=== PATIENT | female | born 1935 | race Caucasian/White ===

== ENCOUNTER 2017-08-30 16:42 | Emergency (ER) | payer MEDICARE ==
[~2017-08-30] VITALS: Ht 162.6 cm; Wt 77.6 kg
[~2017-08-30 16:42] MED LIST: AMERGE2.5 MG PO; FIORINAL WITH1 EACH PO; LYRICA100 MG PO; MOBIC15 MG PO; PREMARIN0.625 MG PO; SYNTHROID25 MCG PO; VITAMIN D32000 UNI1 PO
[2017-08-30] MEDS ORDERED: ONDANSETRON HCL 4 MG ORAL DISINTEGRATING TAB PO ONE (17:00)
[2017-08-30] MEDS ORDERED: MORPHINE SULFATE 5 MG/ML VIAL INJ ONE ×2 (17:00→17:45)
[2017-08-30] MEDS ORDERED: MORPHINE SULFATE 2 MG/ML SYR IV ONE (17:45)
[2017-08-30 19:38] VITALS: BP 130/78
== END 2017-08-30 18:40 | disposition home or self-care (01) ==
LOC: FSED 16:42
DX: G43.009 Migraine without aura, not intractable, without status migrainosus (principal); J01.00 Acute maxillary sinusitis, unspecified; R50.9 Fever, unspecified
CPT/HCPCS: 80048; 85025; 99283; J2270

== ENCOUNTER 2018-08-08 17:51 | Observation (INO) | payer MEDICARE ==
[~2018-08-08] VITALS: Ht 162.6 cm; Wt 83.5 kg
--- OUTSIDE RECORDS SUMMARY | 2018-08-08 17:55 | XMS REPORT | Summary of Care ---
Author Author [facility] Address Unknown Phone Unavailable Encounter HQ Song(FIN) [id number] Date(s): 06/01/16 - 06/30/16 [facility] Discharge Disposition: Home or Self Care Attending Physician: Raudel Adams MD Vital Signs No data available for this section Problem List Condition Effective Dates Status Health Status Informant Arthritis(Confirmed) Active Bacterial Resolved meningitis(Confirmed ) Fibromyalgia(Confirm Resolved ed) Fibromyalgia(Confirm Active ed) History of migraine Active headaches(Confirmed) Knee pain(Confirmed) Active Tumor of eighth Resolved cranial nerve(Confirmed) Allergies, Adverse Reactions, Alerts Substance Reaction Severity Status contrast media MIGRAINES Active (iodine-based) NKDA Active Medications No data available for this section Results No data available for this section Immunizations Given and Recorded Vaccine Date Status Refusal Reason influenza virus vaccine, inactivated 02/11/16 Given pneumococcal 23-valent vaccine 10/30/14 Given Procedures Procedure Date Related Diagnosis Body Site Appendectomy Arthroscopy of knee with meniscus repair BSO - Total abdominal hysterectomy and bilateral salpingo-oophorectomy Cataract surgery Removal of intracranial extradural tumor Social History Social History Type Response Alcohol Never Smoking Status Never smoker; Exposure to Tobacco Smoke Her Father Smoked cigars or pipe; Cigarette Smoking Last 365 Days No; Reg Smoking Cessation Counseling No Assessment and Plan No data available for this section
--- OUTSIDE RECORDS SUMMARY | 2018-08-08 17:55 | XMS REPORT | Summary of Care ---
Author Organization Unknown Address Unknown Phone Unavailable Encounter HQ Encntr_alistephanie([facility]) [id number] Date(s): 11/03/13 - 11/03/13 [facility] [address] Discharge Disposition: Home Physician Attending: Lou Cole MD Reason for Visit 719.46/723.1/719.45 Problem List No data available for this section Allergies, Adverse Reactions, Alerts No data available for this section Medications No data available for this section Medications Administered During Your Visit No data available for this section Immunizations No data available for this section
--- OUTSIDE RECORDS SUMMARY | 2018-08-08 17:55 | XMS REPORT ---
Author Author [facility] Address Unknown Phone Unavailable Care Team Providers Care Mat Maker Name Role Phone Unavailable Unavailable Payers Payer Name Policy Type Policy Number Effective Date Expiration Date Problems This patient has no known problems. Allergies, Adverse Reactions, Alerts Allergy Name Allergy Type Status Severity Reaction(s) Onset Date Inactive Date Treating Clinician Comments No Known Allergies DA Active U 2017-10-31 00:00:00 Medications This patient has no known medications.
--- OUTSIDE RECORDS SUMMARY | 2018-08-08 17:55 | XMS REPORT | Summary of Care ---
Author Organization Unknown Address Unknown Phone Unavailable Encounter HQ Song([facility]) [id number] Date(s): 10/29/14 - 10/31/14 [facility] [address] [place] [address]- [phone] Discharge Disposition: Home Physician Attending: Abdi Ferguson MD Physician Admitting: Abdi Ferguson MD Vital Signs 1 2 3 Most recent to oldest [Reference Range]: 162.56 cm (10/29/14 10:53 PM) 162.56 cm (10/29/14 10:53 PM) Height 98.2 DegF (10/31/14 8:15 AM) 98.1 DegF (10/31/14 4:00 AM) 98.4 DegF (10/31/14 12:00 AM) Temperature Oral [96.4-99.1 DegF] 164/66 mmHg *HI* (10/31/14 8:15 AM) 120/63 mmHg (10/31/14 4:00 AM) 142/71 mmHg *HI* (10/31/14 12:00 AM) Blood Pressure [90-140/60-90 mmHg] 18 BRMIN (10/31/14 8:15 AM) 18 BRMIN (10/31/14 4:00 AM) 18 BRMIN (10/31/14 12:00 AM) Respiratory Rate [14-20 BRMIN] 59 bpm *LOW* (10/31/14 8:15 AM) 74 bpm (10/31/14 4:00 AM) 79 bpm (10/31/14 12:00 AM) Peripheral Pulse Rate [60-100 bpm] 74.227 kg (10/29/14 10:53 PM) 74.227 kg (10/29/14 10:53 PM) Weight 28.09 m2 (10/29/14 10:53 PM) 28.09 m2 (10/29/14 10:53 PM) Body Mass Index Problem List Condition Effective Dates Status Health Status Informant Bacterial Resolved meningitis(Confirmed ) Fibromyalgia(Confirm Resolved ed) History of migraine Active headaches(Confirmed) Tumor of eighth Resolved cranial nerve(Confirmed) Allergies, Adverse Reactions, Alerts Substance Reaction Severity Status NKDA Active Medications Ambien 5 mg, 1 tab, Route: PO, Drug form: TAB, Bedtime, Dosing Weight 74.227, kg, PRN a s needed for sleep, Start date: 10/30/14 13:15:00, Duration: 30 day, Stop date: 11/29/14 13:14:00 Notes: (Same As: Ambien) Start Date: 10/30/14 Stop Date: 10/31/14 Status: Discontinued Ambien 10 mg oral tablet 10 mg=1 tab, PO, Bedtime, PRN for sleep, 0 Refill(s) Start Date: 10/30/14 Stop Date: 11/13/14 Status: Ordered Amerge 2.5 mg, Route: PO, Drug form: TAB, Daily, Dosing Weight 74.227, kg, PRN Headache 6-10, Start date: 10/30/14 13:14:00, Duration: 30 day, Stop date: 11/29/14 13:1 3:00 Start Date: 10/30/14 Stop Date: 10/31/14 Status: Discontinued Amerge 2.5 mg oral tablet 2.5 mg=1 tab, PO, Daily, PRN for migraine headache, # 18 tab, 0 Refill(s) Start Date: 10/30/14 Stop Date: 11/17/14 Status: Ordered APAP/butalbital/caffeine 2 tab, Route: PO, Drug Form: TAB, Q4H, PRN Headache 4-6, Start date: 10/30/14 13 :43:00, Duration: 30 day, Stop date: 11/29/14 13:42:00 Notes: (lvbspjxzlrhqb-pufyswnouh-zsbelcuh 325-50-40mg) Do not exceed 4 gm/day o f acetaminophen. (Same as: Esgic, Fioricet) Start Date: 10/30/14 Stop Date: 10/31/14 Status: Discontinued CeleBREX 200 mg, 2 cap, Route: PO, Drug form: CAP, Daily, Dosing Weight 74.227, kg, Start date: 10/31/14 9:00:00, Duration: 30 day, Stop date: 11/29/14 9:00:00 Notes: NSAID. Please check indication. Not for seizure. (Same As: CeleBREX) Start Date: 10/31/14 Stop Date: 10/31/14 Status: Discontinued CeleBREX 200 mg oral capsule 200 mg=1 cap, PO, Daily, # 30 cap, 0 Refill(s) Start Date: 10/30/14 Status: Ordered Dilaudid 0.2 mg, 0.2 mL, Route: IV, Drug form: INJ, Q3H, kg, PRN Pain Score 7-10, hold fo r sedation, Start date: 10/29/14 21:22:00, Duration: 30 day, Stop date: 11/28/14 21:21:00 Notes: Same as: Dilaudid Start Date: 10/29/14 Stop Date: 10/31/14 Status: Discontinued enoxaparin 40 mg, 0.4 mL, Route: SUB-Q, Drug form: INJ, [id number], Dosing Weight 74.227, kg, Start date: 10/30/14 14:00:00, Duration: 30 day, Stop date: 11/28/14 14:00:00 Notes: (Same as: Lovenox) Start Date: 10/30/14 Stop Date: 10/31/14 Status: Discontinued Fiorinal with Codeine 2 cap, PO, Q4H, PRN Pain Score 7-10, 0 Refill(s) Start Date: 10/30/14 Status: Ordered Fiorinal with Codeine 2 cap, Route: PO, Dosing Weight 74.227, kg, Q4H, PRN Headache 4-6, Start date: 0 10/30/14 13:13:00, Duration: 30 day, Stop date: 11/29/14 13:12:00 Start Date: 10/30/14 Stop Date: 10/30/14 Status: Discontinued Lyrica 150 mg, 2 cap, Route: PO, Drug form: CAP, Daily, Dosing Weight 74.227, kg, Start date: 10/31/14 9:00:00, Duration: 30 day, Stop date: 11/29/14 9:00:00 Notes: (Same as: Lyrica) Start Date: 10/31/14 Stop Date: 10/31/14 Status: Discontinued Lyrica 150 mg oral capsule 150 mg=1 cap, PO, Daily, 0 Refill(s) Start Date: 10/30/14 Stop Date: 10/31/14 Status: Discontinued morphine Sulfate 2 mg, Route: IVP, Q15Min, kg, PRN Chest Pain, Start date: 10/29/14 20:23:00, Dur ation: 2 doses or times, Stop date: Limited # of times Start Date: 10/29/14 Stop Date: 10/29/14 Status: Discontinued nitroglycerin SL Tab 0.4 mg, 1 tab, Route: SL, Drug form: TAB, Q5Min, kg, PRN Chest Pain, Start date: 10/29/14 20:23:00, Duration: 3 doses or times, Stop date: Limited # of times Notes: (Same as:Nitroquick, Nitrostat)"Do Not Crush" Sublingual tablet Start Date: 10/29/14 Stop Date: 10/31/14 Status: Discontinued Norvasc 5 mg, 1 tab, Route: PO, Drug form: TAB, Daily, Dosing Weight 74.227, kg, Start d ate: 11/01/14 9:00:00, Duration: 30 day, Stop date: 11/30/14 9:00:00 Notes: (Same as: Norvasc) Start Date: 11/01/14 Stop Date: 10/31/14 Status: Canceled pneumococcal 23-valent vaccine 0.5 mL, Route: IM, Drug Form: INJ, Daily, Start date: 10/30/14 9:00:00, Duration : 1 doses or times, Stop date: 10/30/14 9:00:00 Notes: (Same as: Pneumovax 23) Refrigerate Start Date: 10/30/14 Stop Date: 10/30/14 Status: Completed Premarin 0.625 mg, 1 tab, Route: PO, Drug form: TAB, Daily, Dosing Weight 74.227, kg, Sta rt date: 10/30/14 16:00:00, Duration: 30 day, Stop date: 11/29/14 9:00:00 Notes: (Same As: Premarin) Start Date: 10/30/14 Stop Date: 10/31/14 Status: Discontinued Premarin 0.625 mg oral tablet 0.625 mg=1 tab, PO, Daily, # 30 tab, 0 Refill(s) Start Date: 10/30/14 Status: Ordered Saline Flush 0.9% 10 ml, Route: IVP, Drug Form: INJ, kg, Q12H, Start date: 10/29/14 21:00:00, Dura tion: 30 day, Stop date: 11/28/14 9:00:00 Notes: (Same as: BD Posiflush) Start Date: 10/29/14 Stop Date: 10/31/14 Status: Discontinued Saline Flush 0.9% 10 ml, Route: IVP, Drug Form: INJ, kg, PRN, PRN Line Flush, Start date: 10/29/14 20:23:00, Duration: 30 day, Stop date: 11/28/14 20:22:00 Notes: (Same as: BD Posiflush) Start Date: 10/29/14 Stop Date: 10/31/14 Status: Discontinued Synthroid 25 microgram, 1 tab, Route: PO, Drug form: TAB, Q630AM, Dosing Weight 74.227, kg , Start date: 10/31/14 6:30:00, Duration: 30 day, Stop date: 11/29/14 6:30:00 Notes: Take 1 hour before or 2 hours after meal; Enteral feeds may interefere wi th the absorption of this medication. (Same as:Levothroid) Start Date: 10/31/14 Stop Date: 10/31/14 Status: Discontinued Synthroid 25 mcg (0.025 mg) oral tablet 25 microgram=1 tab, PO, Daily, # 30 tab, 0 Refill(s) Start Date: 10/30/14 Status: Ordered Tylenol 650 mg, 2 tab, Route: PO, Drug form: TAB, Q6H, Dosing Weight 74.227, kg, PRN Khalif n Score 6-10, Start date: 10/30/14 9:45:00, Duration: 30 day, Stop date: 5 9:44:00 Notes: Do not exceed 4 gm/day. (Same as: Tylenol) Start Date: 10/30/14 Stop Date: 10/31/14 Status: Discontinued Vitamin D 2,000 mg, Route: PO, Daily, Dosing Weight 74.227, kg, Start date: 10/31/14 9:00: 00, Duration: 30 day, Stop date: 11/29/14 9:00:00 Start Date: 10/31/14 Stop Date: 10/30/14 Status: Deleted Vitamin D 2,000 mg, PO, Daily, 0 Refill(s) Start Date: 10/30/14 Status: Ordered Vitamin D3 2,000 IntlUnit, 2 tab, Route: PO, Drug form: TAB, Daily, Start date: 10/30/14 14 :00:00, Duration: 30 day, Stop date: 11/29/14 9:00:00 Start Date: 10/30/14 Stop Date: 10/31/14 Status: Discontinued Xyzal 5 mg oral tablet 5 mg=1 tab, PO, QPM, PRN Allergies, # 30 tab, 0 Refill(s) Start Date: 10/30/14 Status: Ordered Zofran 4 mg, Route: IV, Drug form: INJ, Q8H, Dosing Weight 74.227, kg, PRN Nausea, Star t date: 10/30/14 13:32:00, Duration: 30 day, Stop date: 11/29/14 13:31:00 Start Date: 10/30/14 Stop Date: 10/30/14 Status: Deleted Zofran 4 mg, 2 mL, Route: IV, Drug form: INJ, Q8H, Dosing Weight 74.227, kg, PRN Nausea , Start date: 10/30/14 13:31:00, Duration: 30 day, Stop date: 11/29/14 13:30:00 Notes: (Same as: Zofran) MEDICATION WASTE Product Size: 4 mgProduct Was kandis: ___ mg Start Date: 10/30/14 Stop Date: 10/31/14 Status: Discontinued Results ELECTROLYTES Most recent to 1 2 oldest [Reference Range]: Sodium Lvl [135-145 138 mEq/L mEq/L] (10/30/14 2:31 AM) Potassium Lvl 4.0 mEq/L [3.5-5.1 mEq/L] (10/30/14 2:31 AM) Chloride Lvl [95-109 105 mEq/L mEq/L] (10/30/14 2:31 AM) CO2 [24-32 mEq/L] 27 mEq/L (10/30/14 2:31 AM) AGAP [10.0-20.0 10.0 mEq/L mEq/L] (10/30/14 2:31 AM) CHEM PANEL Most recent to 1 2 oldest [Reference Range]: Creatinine Lvl 1.1 mg/dL 1.1 mg/dL [0.5-1.4 mg/dL] (10/30/14 2:54 PM) (10/30/14 2:31 AM) eGFR 48 mL/min/1.73m2 1 48 mL/min/1.73m2 2 *NA* *NA* (10/30/14 2:54 PM) (10/30/14 2:31 AM) BUN [7-22 mg/dL] 15 mg/dL (10/30/14 2:31 AM) Glucose Lvl [70-99 121 mg/dL 3 mg/dL] *HI* (10/30/14 2:31 AM) Calcium Lvl 8.6 mg/dL [8.5-10.5 mg/dL] (10/30/14 2:31 AM) 1Result Comment: The eGFR is calculated using the CKD-EPI formula. In most young, healthy individuals the eGFR will be >90 mL/min/1.73m2. The eGFR declines with age. An eGFR of 60-89 may be normal in some populations, particularly the elderly, for whom the CKD-EPI formula has not been extensively validated. Use of the eGFR is not recommended in the following populations: Individuals with unstable creatinine concentrations, including patients and those with serious co-morbid conditions. Patients with extremes in muscle mass or diet. The data above are obtained from the National Kidney Disease Education Program ( NKDEP) which additionally recommends that when the eGFR is used in patients with extremes of body mass index for purposes of drug dosing, the eGFR should be mul tiplied by the estimated BMI. 2Result Comment: The eGFR is calculated using the CKD-EPI formula. In most young, healthy individuals the eGFR will be >90 mL/min/1.73m2. The eGFR declines with age. An eGFR of 60-89 may be normal in some populations, particularly the elderly, for whom the CKD-EPI formula has not been extensively validated. Use of the eGFR is not recommended in the following populations: Individuals with unstable creatinine concentrations, including patients and those with serious co-morbid conditions. Patients with extremes in muscle mass or diet. The data above are obtained from the National Kidney Disease Education Program ( NKDEP) which additionally recommends that when the eGFR is used in patients with extremes of body mass index for purposes of drug dosing, the eGFR should be mul tiplied by the estimated BMI. 3Interpretive Data: Adult reference range values reflect the clinical guidelines of the [place] [employer]. CARDIAC ENZYMES Most recent to 1 oldest [Reference Range]: Total CK [12-191 63 unit/L 61 unit/L unit/L] (10/30/14 2:31 AM) (10/29/14 8:30 PM) Troponin-I <0.02 ng/mL <0.02 ng/mL [0.00-0.40 ng/mL] (10/30/14 2:31 AM) (10/29/14 8:30 PM) LIPIDS Most recent to 05 22 oldest [Reference Range]: CHD Risk [3.90-5.80] 3.04 *LOW* (10/29/14 8:30 PM) Chol [<=199 mg/dL] 243 mg/dL *HI* (10/29/14 8:30 PM) Trig [<=149 mg/dL] 82 mg/dL (10/29/14 8:30 PM) HDL [>=61 mg/dL] 80 mg/dL (10/29/14 8:30 PM) LDL (Calculated) 147 mg/dL [<=99 mg/dL] *HI* (10/29/14 8:30 PM) VLDL 16 *NA* (10/29/14 8:30 PM) HEMATOLOGY Most recent to 1 2 oldest [Reference Range]: WBC [3.7-10.4 K/CMM] 5.5 K/CMM (10/30/14 2:31 AM) RBC [4.20-5.40 3.68 M/CMM M/CMM] *LOW* (10/30/14 2:31 AM) Hgb [12.0-16.0 g/dL] 11.4 g/dL *LOW* (10/30/14 2:31 AM) Hct [36.0-48.0 %] 34.4 % *LOW* (10/30/14 2:31 AM) MCV [80.0-98.0 fL] 93.4 fL (10/30/14 2:31 AM) MCH [27.0-31.0 pg] 31.0 pg (10/30/14 2:31 AM) MCHC [32.0-36.0 33.2 g/dL g/dL] (10/30/14 2:31 AM) RDW [11.5-14.5 %] 12.3 % (10/30/14 2:31 AM) Platelet [133-450 223 K/CMM 197 K/CMM K/CMM] (10/30/14 2:54 PM) (10/30/14 2:31 AM) MPV [7.4-10.4 fL] 8.9 fL (10/30/14 2:31 AM) PTT [22.9-35.8 28.3 seconds 4 seconds] (10/30/14 2:54 PM) 4Interpretive Data: Heparin Therapeutic Range: 57 - 92 Seconds Immunizations Vaccine Date Refusal Reason pneumococcal 23-valent vaccine 10/30/14 Procedures Procedure Date Related Diagnosis Body Site [...] Smoking Cessation Counseling No Assessment and Plan Extracted from: Title: Cardiology Note * Author: Mary Choi MD Date: 10/31/14 Impression and Plan ASSESSMENT: 1. Atypical chest pain. 2. Hyperlipidemia. 3. Hypothyroidism. 4. Fibromyalgia. PLAN: - stress test negative - bt at times high. start norvasc 5mg no other cardiac recs. ok to d/c home from cardiac standpoint. followup Dr Spangler as outpt. cardiology signing off
--- OUTSIDE RECORDS SUMMARY | 2018-08-08 17:55 | XMS REPORT | Continuity of Care Document ---
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 [place] CHEST PAIN Active 10/29/2014 [facility] 719.46/723.1/719.45 Active 11/03/2013 [place] Active Problem 07/03/2016 [facility] [place] Bacterial meningitis Resolved Problem [facility]/03[facility] [place] Fib[facility]algia [facility] Problem [facility]03[facility] [place] History of migraine headaches Active Problem [facility]03[facility] [place] Knee pain Active Problem 07/03/2016 [facility] [place] 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 07/03[facility] [place] ENCOUNTER FOR ADMINISTRATIVE EXAMINATION Active [facility] 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 [facility] Medications Medication Details Route Status Patient Instructions Ordering Provider Order Date Source Aspirin 325 MG Enteric Coated Tablet 325 mg=1 tab, PO, BID, # 60 tab, 0 Refill(s) Active 02/11/2016 [facility] Docusate Sodium 100 MG Oral Capsule 100 mg=1 cap, PO, BID, # 60 cap, 0 Refill(s) Active 02/11/2016 [facility] methocarbamol 500 mg oral tablet 1,000 mg=2 tab, PO, Q8H, PRN Muscle Spasms, # 60 tab, 0 Refill(s) Active 02/11/2016 [facility] influenza virus vaccine, inactivated 0.5 mL, Route: IM, Drug Form: SUSP, Daily, Start date: 02/11/16 6:00:00 CDT, Duration: 1 doses or times, Stop date: 02/11/16 6:00:00 CDTNotes: (Same as: Fluzone Quadrivalent, Fluarix Quadrivalent) For 3 years of age and older (0.5 mL IM) Shake well before use Inactive 02/11/2016 [facility] Acetaminophen 325 MG / Hydrocodone Bitartrate 5 MG Oral Tablet [[place] 5/325] 2 tab, Route: PO, Drug Form: TAB, Dosing Weight 72.727, kg, Q6H, PRN Pain Score 7-10, Start date: 02/10/16 19:11:00 CDT, Duration: 30 day, Stop date: 03/11/16 19:10:00 CDTNotes: (Same as: [place] 325/5) Do not exceed 4gm/day of acetaminophen. No Longer Active 02/11/2016 [facility] Acetaminophen 325 MG / Hydrocodone Bitartrate 5 MG Oral Tablet [[place] 5/325] 1 tab, Route: PO, Drug Form: TAB, Dosing Weight 72.727, kg, Q6H, PRN Pain Score 4-6, Start date: 02/10/16 16:33:00 CDT, Duration: 30 day, Stop date: 03/11/16 16:32:00 CDTNotes: (Same as: [place] 325/5) Do not exceed 4gm/day of acetaminophen. No Longer Active 02/10/2016 [facility] Urecholine 25 mg, 2.5 tab, Route: PO, Drug form: TAB, TID, Dosing Weight 72.727, kg, PRN Other -See Comment, Start date: 02/10/16 13:55:00 CDT, Duration: 30 day, Stop date: 03/11/16 13:54:00 CDTNotes: Take on empty stomach. (Same As: Urecholine) No Longer Active 02/10/2016 [facility] influenza virus vaccine, inactivated 0.5 mL, Route: IM, Drug Form: SUSP, Daily, Start date: 02/10/16 9:00:00 CDT, Duration: 1 doses or times, Stop date: 02/10/16 9:00:00 CDTNotes: (Same as: Fluzone Quadrivalent, Fluarix Quadrivalent) For 3 years of age and older (0.5 mL IM) Shake well before use Inactive 02/10/2016 [facility] Synthroid 25 microgram, 1 tab, Route: PO, Drug form: TAB, Q630AM, Dosing Weight 72.727, kg, Start date: 02/10/16 6:30:00 CDT, Duration: 30 day, Stop date: 03/10/16 6:30:00 CDTNotes: Take 1 hour before or 2 hours after meal; Enteral feeds may interefere with the absorption of this medication. (Same as:Levothroid) No Longer Active 02/10/2016 [facility] acetaminophen 1,000 mg, 2 tab, Route: PO, Drug form: TAB, Q6H, Start date: 02/10/16 6:00:00 CDT, Duration: 30 day, Stop date: 03/11/16 0:00:00 CDTNotes: Max acetaminophen 4000 mg/day (4 gm/day). (Same as: Tylenol Extra Strength) No Longer Active 02/10/2016 [facility] remove patch 1 patch, Route: TOP, Q24H, Drug form: ERFILM, Start date: 02/09/16 23:00:00 CDT, Duration: 30 day, Stop date: 03/09/16 23:00:00 CDT No Longer Active 02/10/2016 [facility] Enoxaparin 30 mg, 0.3 mL, Route: SUB-Q, Drug form: INJ, [id number], Dosing Weight 72.727, kg, Start date: 02/09/16 22:16:00 CDT, Duration: 30 day, Stop date: 03/09/16 22:16:00 CDTNotes: (Same as: Lovenox) No Longer Active 02/10/2016 [facility] sennosides, SHELTER 17.2 mg, 2 tab, Route: PO, Drug Form: TAB, Dosing Weight 72.727, kg, Bedtime, Start date: 02/09/16 21:00:00 CDT, Duration: 30 day, Stop date: 03/09/16 21:00:00 CDTNotes: (Same as: Senokot) No Longer Active 02/10/2016 [facility] Docusate 100 mg, Route: PO, BID, Dosing Weight 72.727, kg, Start date: 02/09/16 17:00:00 CDT, Duration: 30 day, Stop date: 03/10/16 9:00:00 CDT Inactive 02/09/2016 [facility] Acetaminophen 1,000 mg, 100 mL, Route: IVPB, Drug form: INJ, Q6Hnow, Dosing Weight 72.727, kg, Start date: 02/09/16 15:00:00 CDT, Duration: 30 day, Stop date: 03/10/16 9:00:00 CDTNotes: Infuse over 15 minutes Do not exceed 4gm/day of acetaminophen MEDICATION WASTE Product Size: 1000 mg Product Wasted: 0___ mg No Longer Active 02/09/2016 [facility] ceFAZolin (SCIP) 2 gm, 50 mL, Route: IV, Drug form: INJ, ABXQ6H, Dosing Weight 72.727, kg, Start date: 02/09/16 14:00:00 CDT, Duration: 2 doses or times, Stop date: 02/09/16 20:00:00 CDT Inactive 02/09/2016 [facility] Albuterol 0.833 MG/ML / Ipratropium Hooper 0.167 MG/ML Inhalant Solution [DuoNeb] 3 ml, Route: NEB, Drug Form: SOLN, Dosing Weight 72.727, kg, PRN, PRN Respiratory Protocol, Start date: 02/09/16 12:12:00 CDT, Duration: 30 day, Stop date: 03/10/16 12:11:00 CDTNotes: (Same as: Duoneb) No Longer Active 02/09/2016 [facility] Lidocaine Hydrochloride 0.05 MG/MG Transdermal Patch [Lidoderm] 1 patch, Route: TOP, Q24H, Drug form: FILM, Start date: 02/09/16 11:00:00 CDT, Duration: 30 day, Stop date: 03/09/16 11:00:00 CDTNotes: Apply only once for up to 12 hours in a 24-hour period (12 hours on and 12 hours off). (Same as: Lidoderm) "Remove old patch before application of new patch" No Longer Active 02/09/2016 [facility] gabapentin 300 mg, 1 cap, Route: PO, Drug form: CAP, Q8Hnow, Dosing Weight 72.727, kg, Start date: 02/09/16 11:00:00 CDT, Duration: 30 day, Stop date: 03/10/16 3:00:00 CDTNotes: (Same as: Neurontin) No Longer Active 02/09/2016 [facility] Tramadol 50 mg, Route: PO, Drug form: TAB, Q6Hnow, Dosing Weight 72.727, kg, Start date: 02/09/16 11:00:00 CDT, Duration: 30 day, Stop date: 03/10/16 5:00:00 CDT Inactive 02/09/2016 [facility] celecoxib 200 mg, 1 cap, Route: PO, Drug form: CAP, [id number], Dosing Weight 72.727, kg, Start date: 02/09/16 11:00:00 CDT, Duration: 30 day, Stop date: 03/09/16 23:00:00 CDTNotes: NSAID. Please check indication. Not for seizure. (Same As: CeleBREX) No Longer Active 02/09/2016 [facility] pregabalin 100 mg, Route: PO, Q8Hnow, Dosing Weight 72.727, kg, Start date: 02/09/16 11:00:00 CDT, Duration: 30 day, Stop date: 03/10/16 3:00:00 CDT Inactive 02/09/2016 [facility] Acetaminophen 1,000 mg, Route: IVPB, Q6Hnow, Dosing Weight 72.727, kg, Start date: 02/09/16 11:00:00 CDT, Duration: 30 day, Stop date: 03/10/16 5:00:00 CDT Inactive 02/09/2016 [facility] Nalbuphine 2 mg, 0.2 mL, Route: IVP, Drug form: INJ, Q2H, Dosing Weight 72.727, kg, PRN Itching, Start date: 02/09/16 10:43:00 CDT, Duration: 5 doses or times, Stop date: Limited # of timesNotes: (Same As: [place] in) No Longer Active 02/09/2016 [facility] Oxycodone Hydrochloride 5 MG Oral Tablet 10 mg, 2 tab, Route: PO, Drug form: TAB, Q4H, Dosing Weight 72.727, kg, PRN Pain Score 7-10, Start date: 02/09/16 10:43:00 CDT, Duration: 30 day, Stop date: 03/10/16 10:42:00 CDTNotes: (Same as: Roxicodone) No Longer Active 02/09/2016 [facility] Methocarbamol 1,000 mg, 2 tab, Route: PO, Drug form: TAB, Q8H, Dosing Weight 72.727, kg, PRN Muscle Spasms, Start date: 02/09/16 10:43:00 CDT, Duration: 30 day, Stop date: 03/10/16 10:42:00 CDTNotes: (Same as:Robaxin) Inactive 02/09/2016 [facility] Ondansetron 4 mg, Route: IVP, Q8H, Dosing Weight 72.727, kg, PRN Nausea & Vomiting, Start date: 02/09/16 10:43:00 CDT, Duration: 30 day, Stop date: 03/10/16 10:42:00 CDT Inactive 02/09/2016 [facility] Bisacodyl 10 mg, 1 supp, Route: OH, Drug form: SUPP, Daily, Dosing Weight 72.727, kg, PRN Constipation, Start date: 02/09/16 10:43:00 CDT, Duration: 30 day, Stop date: 03/10/16 10:42:00 CDTNotes: (Same As: Dulcolax, Bisco-Lax) No Longer Active 02/09/2016 [facility] Hydromorphone 0.3 mg, Route: IVP, Q4H, Dosing Weight 72.727, kg, PRN Pain Score 7-10, Start date: 02/09/16 10:43:00 CDT, Duration: 30 day, Stop date: 03/10/16 10:42:00 CDT Inactive 02/09/2016 [facility] Naloxone 0.1 mg, 0.25 mL, Route: IVP, Drug form: INJ, Q2MIN, Dosing Weight 72.727, kg, PRN Narcotic Reversal, Start date: 02/09/16 10:43:00 CDT, Duration: 8 doses or times, Stop date: Limited # of timesNotes: Same as Narcan No Longer Active 02/09/2016 [facility] Ondansetron 4 mg, 2 mL, Route: IVP, Drug form: INJ, ONCE, Dosing Weight 72.727, kg, PRN Nausea & Vomiting, Start date: 02/09/16 10:42:00 CDTNotes: (Same as: Albertina) MEDICATION WASTE Product Size: 4 mg Product Wasted: 0___ mg Inactive 02/09/2016 [facility] Promethazine 6.25 mg, 25 mL, Route: IVPB, Drug form: SOLN, ONCE, Dosing Weight 72.727, kg, PRN Nausea & Vomiting, Start date: 02/09/16 10:42:00 CDT Inactive 02/09/2016 [facility] Naloxone 0.4 mg, 1 mL, Route: IVP, Drug form: INJ, Q2MIN, Dosing Weight 72.727, kg, PRN Narcotic Reversal, Start date: 02/09/16 10:42:00 CDT, Duration: 8 doses or times, Stop date: Limited # of timesNotes: Same as Narcan Inactive 02/09/2016 [facility] Albuterol 0.83 MG/ML Inhalant Solution 2.49 mg, 3 mL, Route: NEB, Drug form: SOLN, Q20Min, Dosing Weight 72.727, kg, PRN Wheezing, Priority: STAT, Start date: 02/09/16 10:42:00 CDT, Duration: 30 day, Stop date: 03/10/16 10:41:00 CDTNotes: SEE RT DOCUMENTATION (Same as: Juvencio) Inactive 02/09/2016 [facility] Diphenhydramine 12.5 mg, 0.25 mL, Route: IVP, Drug form: INJ, Q6H, Dosing Weight 72.727, kg, PRN Itching, Start date: 02/09/16 10:42:00 CDT, Duration: 30 day, Stop date: 03/10/16 10:41:00 CDTNotes: (Same as: Brittany mortensen) Inactive 02/09/2016 [facility] Flumazenil 0.2 mg, 2 mL, Route: IVP, Drug form: INJ, PRN, Dosing Weight 72.727, kg, PRN Benzodiazepine Reversal, Initial dose, Start date: 02/09/16 10:42:00 CDT, Duration: 30 day, Stop date: 03/10/16 10:41:00 C DTNotes: (Same as: Romazicon) Inactive 02/09/2016 [facility] Fentanyl 25 microgram, 0.5 mL, Route: IVP, Drug form: INJ, Q5Min, Dosing Weight 72.727, kg, PRN Pain Score 4-6, Start date: 02/09/16 10:42:00 CDT, Duration: 4 doses or times, Stop date: Limited # of timesNotes: (Same as: Sublimaze) Preservative free. Inactive 02/09/2016 [facility] Hydromorphone 0.5 mg, 0.5 mL, Route: IVP, Drug form: INJ, Q5Min, Dosing Weight 72.727, kg, PRN Pain Score 7-10, Start date: 02/09/16 10:42:00 CDT, Duration: 4 doses or times, Stop date: Limited # of timesNotes: Sa me as: Dilaudid Inactive 02/09/2016 [facility] Hydralazine 10 mg, 0.5 mL, Route: IVP, Drug form: INJ, Q20Min, Dosing Weight 72.727, kg, PRN Elevated BP, Start date: 02/09/16 10:42:00 CDT, Duration: 2 doses or times, Stop date: Limited # of timesNotes: (Same as: Apresoline) Push over 5 minutes Inactive 02/09/2016 [facility] Labetalol 10 mg, 2 mL, Route: IVP, Drug form: INJ, Q5Min, Dosing Weight 72.727, kg, PRN Elevated BP, Start date: 02/09/16 10:42:00 CDT, Duration: 5 doses or times, Stop date: Limited # of times Inactive 02/09/2016 [facility] Calcium Chloride 0.0014 MEQ/ML / Potassium Chloride 0.004 MEQ/ML / Sodium Chloride 0.103 MEQ/ML / Sodium Lactate 0.028 MEQ/ML Injectable Solution 1,000 mL, Rate: 125 ml/hr, Infuse over: 8 hr, Route: IV, Dosing Weight 72.727 kg, Total Volume: 1,000, Start date: 02/09/16 10:42:00 CDT, Duration: 30 day, Stop date: 03/10/16 10:41:00 CDT Inactive 02/09/2016 [facility] Ondansetron 4 mg, 2 mL, Route: IVP, Drug form: INJ, Q8H, Dosing Weight 72.727, kg, PRN Nausea & Vomiting, Start date: 02/09/16 10:17:00 CDT, Duration: 30 day, Stop date: 03/10/16 10:16:00 CDTNotes: (Same as: Zofran) MEDICATION WASTE Product Size: 4 mg Product Wasted: _0__ mg No Longer Active 02/09/2016 [facility] Methocarbamol 1,000 mg, 2 tab, Route: PO, Drug form: TAB, Q8H, Dosing Weight 72.727, kg, PRN Muscle Spasms, Start date: 02/09/16 10:17:00 CDT, Duration: 30 day, Stop date: 03/10/16 10:16:00 CDTNotes: (Same as:Robaxin) No Longer Active 02/09/2016 [facility] Melatonin 3 mg, 1 tab, Route: PO, Drug form: TAB, Bedtime, Dosing Weight 72.727, kg, PRN Insomnia, Start date: 02/09/16 10:17:00 CDT, Duration: 30 day, Stop date: 03/10/16 10:16:00 CDTNotes: (Same as: Melatonin) No Longer Active 02/09/2016 [facility] Hydromorphone 0.3 mg, 0.3 mL, Route: IVP, Drug form: INJ, Q4H, Dosing Weight 72.727, kg, PRN Pain Score 7-10, Start date: 02/09/16 10:17:00 CDT, Duration: 30 day, Stop date: 03/10/16 10:16:00 CDTNotes: Same as: Dilaudid No Longer Active 02/09/2016 [facility] Al hydroxide/Mg hydroxide/simethicone 200 mg-200 mg-20 mg/5 mL oral suspension 30 mL, Route: PO, Drug Form: SUSP, Dosing Weight 72.727, kg, Q4H, PRN Indigestion, Start date: 02/09/16 10:17:00 CDT, Duration: 30 day, Stop date: 03/10/16 10:16:00 CDTNotes: (aluminum hydroxide-magnesium hyd- simethicone [phone]/5ml 30 ml ud SHAUN) No Longer Active 02/09/2016 [facility] Diphenhydramine 12.5 mg, 5 mL, Route: PO, Drug form: LIQ, Q6H, Dosing Weight 72.727, kg, PRN Itching, Start date: 02/09/16 10:17:00 CDT, Duration: 30 day, Stop date: 03/10/16 10:16:00 CDTNotes: (Same as: Benadryl) No Longer Active 02/09/2016 [facility] Oxycodone Hydrochloride 5 MG Oral Tablet 10 mg, 2 tab, Route: PO, Drug form: TAB, Q4H, Dosing Weight 72.727, kg, PRN Pain Score 7-10, Start date: 02/09/16 10:17:00 CDT, Duration: 30 day, Stop date: 03/10/16 10:16:00 CDTNotes: (Same as: Roxicodone) Inactive 02/09/2016 [facility] sodium chloride 0.45% 1000 ml INJ 1,000 mL 1,000 mL, Rate: 75 ml/hr, Infuse over: 13.3 hr, Route: IV, Dosing Weight 72.727 kg, Total Volume: 1,000, Start date: 02/09/16 10:17:00 CDT, Duration: 30 day, Stop date: 03/10/16 10:16:00 CDT No Longer Active 02/09/2016 [facility] fentaNYL (ANES) Route: IV, Drug form: INJ, ONCE, Stop date: 02/09/16 9:59:00 CDT Inactive 02/09/2016 [facility] ondansetron (ANES) Route: IV, Drug form: INJ, ONCE, Stop date: 02/09/16 9:44:00 CDT Inactive 02/09/2016 [facility] glycopyrrolate (ANES) Route: IV, Drug form: INJ, ONCE, Stop date: 02/09/16 9:34:00 CDT Inactive 02/09/2016 [facility] ePHEDrine (ANES) Route: IV, Drug form: INJ, ONCE, Stop date: 02/09/16 9:34:00 CDT Inactive 02/09/2016 [facility] dexamethasone (ANES) Route: IV, Drug form: INJ, ONCE, Stop date: 02/09/16 9:34:00 CDT Inactive 02/09/2016 [facility] propofol (ANES) Route: IV, Drug form: INJ, ONCE, Stop date: 02/09/16 9:29:00 CDT Inactive 02/09/2016 [facility] ceFAZolin (ANES) Route: IV, Drug form: INJ, ONCE, Stop date: 02/09/16 9:29:00 CDT Inactive 02/09/2016 [facility] fentaNYL (ANES) Route: IV, Drug form: INJ, ONCE, Stop date: 02/09/16 9:14:00 CDT Inactive 02/09/2016 [facility] lidocaine (ANES) Route: IV, Drug form: INJ, ONCE, Stop date: 02/09/16 9:14:00 CDT Inactive 02/09/2016 [facility] acetaminophen (ANES) (ANES) Route: IV, Drug form: INJ, Start date: 02/09/16 9:00:00 CDT, Stop date: 02/09/16 10:00:00 CDT Inactive 02/09/2016 [facility] tranexamic acid (ANES) (ANES) Route: IV, Drug form: INJ, Start date: 02/09/16 8:20:00 CDT, Stop date: 02/09/16 9:20:00 CDT Inactive 02/09/2016 [facility] LR 1000 mL INJ (ANES) Route: IV, Total Volume: 1,000, Start date: 02/09/16 8:12:00 CDT, Stop date: 02/09/16 9:12:00 CDT Inactive 02/09/2016 [facility] Lidocaine Hydrochloride 10 MG/ML Injectable Solution 5 mg, 0.5 mL, Route: INTRADERM, Drug Form: INJ, Dosing Weight 73.182, kg, ONCALL, Start date: 02/09/16 7:00:00 CDT, Duration: 30 day, Stop date: 03/10/16 6:59:00 CDTNotes: (Same as: Xylocaine) Inactive 02/09/2016 [facility] Tylenol PO, 0 Refill(s) Active 02/09/2016 [facility] Lactated Ringers 1,000 mL 1,000 mL, Rate: 40 ml/hr, Infuse over: 25 hr, Route: IV, Dosing Weight 73.182 kg, Total Volume: 1,000, Start date: 02/09/16 6:31:00 CDT, Duration: 30 day, Stop date: 03/10/16 6:30:00 CDT Inactive 02/09/2016 [facility] ceFAZolin 2 gm, 50 mL, Route: IV, Drug form: INJ, PRE OP, Start date: 02/09/16 5:00:00 CDT, Duration: 1 day, Stop date: 02/10/16 4:59:00 CDT Inactive 02/09/2016 [facility] non-formulary PO, Daily, Refill(s) 0 No Longer Active 01/26/2016 [facility] pregabalin 150 MG Oral Capsule [Lyrica] 150 mg=1 cap, PO, Daily, 0 Refill(s) Active 01/26/2016 [facility] temazepam 30 mg oral capsule 30 mg=1 cap, PO, Bedtime, PRN Sleep, # 14 cap, 0 Refill(s) Active 01/26/2016 [facility] Norvasc 5 mg, 1 tab, Route: PO, Drug form: TAB, Daily, Dosing Weight 74.227, kg, Start date: 11/01/14 9:00:00, Duration: 30 day, Stop date: 11/30/14 9:00:00Notes: (Same as: Norvasc) No Longer Active 11/01/2014 [facility] Lyrica 150 mg, 2 cap, Route: PO, Drug form: CAP, Daily, Dosing Weight 74.227, kg, Start date: 10/31/14 9:00:00, Duration: 30 day, Stop date: 11/29/14 9:00:00Notes: (Same as: Lyrica) Inactive 10/31/2014 [facility] Vitamin D 2,000 mg, Route: PO, Daily, Dosing Weight 74.227, kg, Start date: 10/31/14 9:00:00, Duration: 30 day, Stop date: 11/29/14 9:00:00 No Longer Active 10/31/2014 [facility] Celebrex 200 mg, 2 cap, Route: PO, Drug form: CAP, Daily, Dosing Weight 74.227, kg, Start date: 10/31/14 9:00:00, Duration: 30 day, Stop date: 11/29/14 9:00:00Notes: NSAID. Please check indication. Not for seizure. (Same As: CeleBREX ) Inactive 10/31/2014 [facility] Synthroid 25 microgram, 1 tab, Route: PO, Drug form: TAB, Q630AM, Dosing Weight 74.227, kg, Start date: 10/31/14 6:30:00, Duration: 30 day, Stop date: 11/29/14 6:30:00Notes: Take 1 hour before or 2 hours after meal; Enteral feeds may interefere with the absorption of this medication. (Same as:Levothroid) Inactive 10/31/2014 [facility] Premarin 0.625 mg, 1 tab, Route: PO, Drug form: TAB, Daily, Dosing Weight 74.227, kg, Start date: 10/30/14 16:00:00, Duration: 30 day, Stop date: 11/29/14 9:00:00Notes: (Same As: Premarin) No Longer Active 10/30/2014 [facility] Vitamin D3 2,000 IntlUnit, 2 tab, Route: PO, Drug form: TAB, Daily, Start date: 10/30/14 14:00:00, Duration: 30 day, Stop date: 11/29/14 9:00:00 No Longer Active 10/30/2014 [facility] Enoxaparin 40 mg, 0.4 mL, Route: SUB-Q, Drug form: INJ, [id number], Dosing Weight 74.227, kg, Start date: 10/30/14 14:00:00, Duration: 30 day, Stop date: 11/28/14 14:00:00Notes: (Same as: Lovenox) No Longer Active 10/30/2014 [facility] APAP/butalbital/caffeine 2 tab, Route: PO, Drug Form: TAB, Q4H, PRN Headache 4-6, Start date: 10/30/14 13:43:00, Duration: 30 day, Stop date: 11/29/14 13:42:00Notes: (vfwtskkkgezbb-jzgcmzqoji-llpegepd 325-50-40mg) Do not exceed 4 gm/day of acetaminophen. (Same as: Esgic, Fioricet) No Longer Active 10/30/2014 [facility] Zofran 4 mg, Route: IV, Drug form: INJ, Q8H, Dosing Weight 74.227, kg, PRN Nausea, Start date: 10/30/14 13:32:00, Duration: 30 day, Stop date: 11/29/14 13:31:00 Inactive 10/30/2014 [facility] Zofran 4 mg, 2 mL, Route: IV, Drug form: INJ, Q8H, Dosing Weight 74.227, kg, PRN Nausea, Start date: 10/30/14 13:31:00, Duration: 30 day, Stop date: 11/29/14 13:30:00Notes: (Same as: Zofran) MEDICATION WASTE Product Size: 4 mg Product Wasted: ___ mg No Longer Active 10/30/2014 [facility] Ambien 5 mg, 1 tab, Route: PO, Drug form: TAB, Bedtime, Dosing Weight 74.227, kg, PRN as needed for sleep, Start date: 10/30/14 13:15:00, Duration: 30 day, Stop date: 11/29/14 13:14:00Notes: (Same As: Ambien) No Longer Active 10/30/2014 [facility] Amerge 2.5 mg, Route: PO, Drug form: TAB, Daily, Dosing Weight 74.227, kg, PRN Headache 6-10, Start date: 10/30/14 13:14:00, Duration: 30 day, Stop date: 11/29/14 13:13:00 No Longer Active 10/30/2014 [facility] Fiorinal with Codeine 2 cap, Route: PO, Dosing Weight 74.227, kg, Q4H, PRN Headache 4-6, Start date: 10/30/14 13:13:00, Duration: 30 day, Stop date: 11/29/14 13:12:00 Inactive 10/30/2014 [facility] Tylenol 650 mg, 2 tab, Route: PO, Drug form: TAB, Q6H, Dosing Weight 74.227, kg, PRN Pain Score 6-10, Start date: 10/30/14 9:45:00, Duration: 30 day, Stop date: 11/29/14 9:44:00Notes: Do not exceed 4 gm/day. (Same as: Tylenol) No Longer Active 10/30/2014 [facility] pneumococcal capsular polysaccharide type 1 vaccine / pneumococcal capsular polysaccharide type 10A vaccine / pneumococcal capsular polysaccharide type 11A vaccine / pneumococcal capsular polysaccharide type 12F vaccine / pneumococcal capsular polysacchar 0.5 mL, Route: IM, Drug Form: INJ, Daily, Start date: 10/30/14 9:00:00, Duration: 1 doses or times, Stop date: 10/30/14 9:00:00Notes: (Same as: Pneumovax 23) Refrigerate Inactive 10/30/2014 [facility] levocetirizine dihydrochloride 5 MG Oral Tablet [Xyzal] 5 mg=1 tab, PO, QPM, PRN Allergies, # 30 tab, 0 Refill(s) Active 10/30/2014 [facility] pregabalin 150 MG Oral Capsule [Lyrica] 150 mg=1 cap, PO, Daily, 0 Refill(s) No Longer Active 10/30/2014 [facility] Fiorinal with Codeine 2 cap, PO, Q4H, PRN Pain Score 7- 10, 0 Refill(s) Active 10/30/2014 [facility] naratriptan 2.5 MG Oral Tablet [Amerge] 2.5 mg=1 tab, PO, Daily, PRN for migraine headache, # 18 tab, 0 Refill(s) Active 10/30/2014 [facility] celecoxib 200 MG Oral Capsule [Celebrex] 200 mg=1 cap, PO, Daily, # 30 cap, 0 Refill(s) Active 10/30/2014 [facility] Levothyroxine Sodium 0.025 MG Oral Tablet [Synthroid] 25 microgram=1 tab, PO, Daily, # 30 tab, 0 Refill(s) Active 10/30/2014 [facility] Estrogens, Conjugated (SHELTER) 0.625 MG Oral Tablet [Premarin] 0.625 mg=1 tab, PO, Daily, # 30 tab, 0 Refill(s) Active 10/30/2014 [facility] Vitamin D 2,000 mg, PO, Daily, 0 Refill(s) Active 10/30/2014 [facility] Zolpidem tartrate 10 MG Oral Tablet [Ambien] 10 mg=1 tab, PO, Bedtime, PRN for sleep, 0 Refill(s) Active 10/30/2014 [facility] Dilaudid 0.2 mg, 0.2 mL, Route: IV, Drug form: INJ, Q3H, kg, PRN Pain Score 7-10, hold for sedation, Start date: 10/29/14 21:22:00, Duration: 30 day, Stop date: 11/28/14 21:21:00Notes: Same as: Dilaudid No Longer Active 10/30/2014 [facility] Saline Flush 0.9% 10 ml, Route: IVP, Drug Form: INJ, kg, Q12H, Start date: 10/29/14 21:00:00, Duration: 30 day, Stop date: 11/28/14 9:00:00Notes: (Same as: BD Posiflush) No Longer Active 10/30/2014 [facility] Saline Flush 0.9% 10 ml, Route: IVP, Drug Form: INJ, kg, PRN, PRN Line Flush, Start date: 10/29/14 20:23:00, Duration: 30 day, Stop date: 11/28/14 20:22:00Notes: (Same as: BD Posiflush) No Longer Active 10/30/2014 [facility] Morphine 2 mg, Route: IVP, Q15Min, kg, PRN Chest Pain, Start date: 10/29/14 20:23:00, Duration: 2 doses or times, Stop date: Limited # of times Inactive 10/30/2014 [facility] Nitroglycerin 0.4 mg, 1 tab, Route: SL, Drug form: TAB, Q5Min, kg, PRN Chest Pain, Start date: 10/29/14 20:23:00, Duration: 3 doses or times, Stop date: Limited # of timesNotes: (Same as:Nitroquick, Nitrostat) "Do Not Crush" Sublingual tablet No Longer Active 10/30/2014 [facility] Allergies, Adverse Reactions, Alerts Substance Category Reaction Severity Reaction type Status Date Reported Comments Source contrast media (iodine-based) Assertion MIGRAINES Propensity to adverse reactions to drug Active [facility] Immunizations Immunization Date Given Site Status Last Updated Comments Source influenza virus vaccine, inactivated 02/11/2016 Right deltoid completed [employer] [facility] pneumococcal 23-valent vaccine 10/30/2014 Right deltoid completed [place] [facility] [place] Results Order Name Results Value Reference Range Date Interpretation Comments Source HEMATOLOGY Hct 32.0 % 36.0 - 48.0 02/12/2016 [facility] HEMATOLOGY Hgb 10.8 g/dL 12.0 - 16.0 02/12/2016 [facility] CHEM PANEL eGFR 61 mL/min/1.73m2 02/10/2016 Result Comment: The eGFR is calculated using the [...] from the National Kidney Disease Education Program (NKDEP) which additionally recommends that when the eGFR is used in patients with extremes of body mass index for purposes of drug dosing, the eGFR should be multiplied by the estimated BMI. [facility] CHEM PANEL BUN 16 mg/dL 7 - 22 02/10/2016 [facility] CHEM PANEL Glucose Lvl 89 mg/dL 70 - 99 02/10/2016 [facility] CHEM PANEL Sodium Lvl 136 meq/L 135 - 145 02/10/2016 [facility] CHEM PANEL Creatinine Lvl 0.90 mg/dL 0.50 - 1.40 02/10/2016 [facility] CHEM PANEL Calcium Lvl 8.0 mg/dL 8.5 - 10.5 02/10/2016 [facility] CHEM PANEL CO2 27 meq/L 24 - 32 02/10/2016 [facility] CHEM PANEL Chloride Lvl 104 meq/L 95 - 109 02/10/2016 [facility] CHEM PANEL Potassium Lvl 4.6 meq/L 3.5 - 5.1 02/10/2016 [facility] CHEM PANEL AGAP 9.6 meq/L 10.0 - 20.0 02/10/2016 [facility] HEMATOLOGY Hgb 11.1 g/dL 12.0 - 16.0 02/10/2016 [facility] HEMATOLOGY Hct 32.5 % 36.0 - 48.0 02/10/2016 [facility] Knee 1-2 Views unilateral DX Knee 1-2 Views unilateral DX Clinical Indication: Pain and swelling. Postoperative evaluation following total knee arthroplasty Comparison: None Technique: 2 views of the right knee FINDINGS: Expected satisfactory alignment following right total knee arthroplasty with patellar resurfacing. Hardware is in expected position without perihardware fracture or evidence of acute complication. Small amount of expected knee joint pneumarthrosis and subcutaneous emphysema. IMPRESSION: 1. Expected appearance and alignment following right total knee arthroplasty with patellar resurfacing. No perihardware fracture or evidence of acute complication. SL: [id number] 02/09/2016 - - Read by: Tonny Garza MD Dictated Date/time: 02/09/16 11:00 Electronically Signed by: Tonny Garza MD 02/09/16 11:02 FINAL REPORT [facility] ELECTROLYTES AGAP 10.1 meq/L 10.0 - 20.0 01/26/2016 [facility] ELECTROLYTES eGFR 38 mL/min/1.73m2 01/26/2016 Result Comment: The eGFR is calculated using the [...] from the National Kidney Disease Education Program (NKDEP) which additionally recommends that when the eGFR is used in patients with extremes of body mass index for purposes of drug dosing, the eGFR should be multiplied by the estimated BMI. [facility] ELECTROLYTES Chloride Lvl 110 meq/L 95 - 109 01/26/2016 [facility] ELECTROLYTES CO2 27 meq/L 24 - 32 01/26/2016 [facility] ELECTROLYTES Calcium Lvl 8.6 mg/dL 8.5 - 10.5 01/26/2016 [facility] ELECTROLYTES Potassium Lvl 4.1 meq/L 3.5 - 5.1 01/26/2016 [facility] ELECTROLYTES Sodium Lvl 143 meq/L 135 - 145 01/26/2016 [facility] ELECTROLYTES BUN 27 mg/dL 7 - 22 01/26/2016 [facility] ELECTROLYTES Glucose Lvl 109 mg/dL 70 - 99 01/26/2016 [facility] ELECTROLYTES Creatinine Lvl 1.33 mg/dL 0.50 - 1.40 01/26/2016 [facility] HEMATOLOGY MPV 9.6 fL 7.4 - 10.4 01/26/2016 [facility] HEMATOLOGY WBC 4.4 K/CMM 3.7 - 10.4 01/26/2016 [facility] HEMATOLOGY Hgb 12.3 g/dL 12.0 - 16.0 01/26/2016 [facility] HEMATOLOGY RBC 4.03 M/CMM 4.20 - 5.40 01/26/2016 [facility] HEMATOLOGY Hct 37.6 % 36.0 - 48.0 01/26/2016 [facility] HEMATOLOGY MCV 93.2 fL 80.0 - 98.0 01/26/2016 [facility] HEMATOLOGY MCH 30.4 pg 27.0 - 31.0 01/26/2016 [facility] HEMATOLOGY Platelet 204 K/CMM 133 - 450 01/26/2016 [facility] HEMATOLOGY RDW 12.7 % 11.5 - 14.5 01/26/2016 [facility] HEMATOLOGY MCHC 32.6 g/dL 32.0 - 36.0 01/26/2016 [facility] HEMATOLOGY Segs-Bands # 2.6 K/CMM 1.5 - 8.1 01/26/2016 [facility] HEMATOLOGY Monocytes 12.4 % 2.0 - 12.0 01/26/2016 [facility] HEMATOLOGY Basophils 0.7 % 0.0 - 1.0 01/26/2016 [facility] HEMATOLOGY Eosinophils 2.0 % 0.0 - 4.0 01/26/2016 [facility] HEMATOLOGY Lymphocytes 25.5 % 20.0 - 40.0 01/26/2016 [facility] HEMATOLOGY Segs 59.4 % 45.0 - 75.0 01/26/2016 [facility] HEMATOLOGY Lymphocytes # 1.1 K/CMM 1.0 - 5.5 01/26/2016 [facility] HEMATOLOGY Monocytes # 0.5 K/CMM 0.0 - 0.8 01/26/2016 [facility] HEMATOLOGY Eosinophils # 0.1 K/CMM 0.0 - 0.5 01/26/2016 [facility] URINE AND STOOL UA Urobilinogen <=1.0 mg/dL 0.1 - 1.0 01/26/2016 [facility] URINE AND STOOL Micro? Performed *NA* (01/26/16 2:50 PM) 01/26/2016 [facility] URINE AND STOOL UA Leuk Est Trace *ABN* (01/26/16 2:50 PM) Negative 01/26/2016 [facility] URINE AND STOOL UA Nitrite Negative (01/26/16 2:50 PM) Negative 01/26/2016 [facility] URINE AND STOOL UA Sq Epi Many /LPF Few /LPF 01/26/2016 [facility] URINE AND STOOL UA Bacteria Occasional /HPF None Seen /HPF 01/26/2016 [facility] URINE AND STOOL UA Mucus Few /LPF None Seen /LPF 01/26/2016 [facility] URINE AND STOOL UA WBC 1 /HPF 0 - 5 01/26/2016 [facility] URINE AND STOOL UA RBC 1 /HPF 0 - 2 01/26/2016 [facility] URINE AND STOOL UA Blood Negative (01/26/16 2:50 PM) Negative 01/26/2016 [facility] URINE AND STOOL UA Bili Negative *NA* (01/26/16 2:50 PM) Negative 01/26/2016 [facility] URINE AND STOOL UA Ketones Negative mg/dL Negative mg/dL 01/26/2016 [facility] URINE AND STOOL UA pH 5.5 5.0 - 8.0 01/26/2016 [facility] URINE AND STOOL UA Protein 10 mg/dL Negative mg/dL 01/26/2016 [facility] URINE AND STOOL UA Glucose Negative mg/dL Negative mg/dL 01/26/2016 [facility] URINE AND STOOL UA Color Yellow *NA* (01/26/16 2:50 PM) Yellow 01/26/2016 [facility] URINE AND STOOL UA Spec Grav 1.018 <=1.030 01/26/2016 [facility] URINE AND STOOL UA Turbidity Slight *ABN* (01/26/16 2:50 PM) Clear 01/26/2016 [facility] Chest 2 views DX Chest 2 views DX Clinical Indication: Z01.810 , preoperative evaluation Comparison: To 613 FINDINGS: PA and lateral views of the chest are performed. Heart size is within normal limits. Mediastinal contours are unremarkable. Lungs are clear without infiltrate or mass. No pleural effusion or pneumothorax. Right apex curvature of the spine. No acute osseous abnormality. IMPRESSION: 1. No radiographic evidence for acute process in the chest. SL: [id number] 01/26/2016 - - Read by: Gibson Robison MD Dictated Date/time: 01/26/16 15:45 Electronically Signed by: Gibson Robison MD 01/26/16 15:46 FINAL REPORT [facility] CHEM PANEL eGFR 48 mL/min/1.73m2 10/30/2014 1Result Comment: The eGFR is calculated using [...] from the National Kidney Disease Education Program (NKDEP) which additionally recommends that when the eGFR is used in patients with extremes of body mass index for purposes of drug dosing, the eGFR should be multiplied by the estimated BMI. [facility] CHEM PANEL Creatinine Lvl 1.1 mg/dL 0.5 - 1.4 10/30/2014 [facility] HEMATOLOGY Platelet 223 K/CMM 133 - 450 10/30/2014 [facility] HEMATOLOGY PTT 28.3 s 22.9 - 35.8 10/30/2014 4Interpretive Data: Heparin Therapeutic Range: 57 - 92 Seconds [facility] Abdomen RUQ US Abdomen RUQ US Name: ARGELIA FAJARDO : 1935 SEX: F Ordering Physician: Wesley Zhu Abdomen RUQ US : Oct 30, 2014 01:13:00 PM. CLINICAL INDICATION: Abdominal pain, acute Comparison Examination: None TECHNIQUE: Grayscale and limited color sonographic evaluation of the right upper quadrant of the abdomen and gallbladder region was performed with standard technique. FINDINGS: LIVER: The visualized liver shows normal size, contour, and morphology with normal parenchymal echo texture. BILE DUCTS: There is no intrahepatic biliary ductal dilation. The common bile duct measures 5 mm at the param hepatis. GALLBLADDER: There are no gallstones, gallbladder sludge, pericholecystic fluid or wall thickening. PANCREAS: The visualized pancreas appears unremarkable. KIDNEY: The right kidney is atrophic measuring 6.9 cm in length. There is normal renal contour and morphology, with normal parenchymal echotexture. There is no hydronephrosis. AORTA AND INFERIOR VENA CAVA: Visualized portions appear unremarkable. ASCITES: There is no right upper quadrant abdominal ascites. IMPRESSION: Atrophic right kidney without other significant abnormality within the right upper quadrant. SL: 23 10/30/2014 - - Read by: Edwin Armendariz MD Dictated Date/time: 10/30/14 14:27 Electronically Signed by: Edwin Armendariz MD 10/30/14 14:27 FINAL REPORT [facility] CARDIAC ENZYMES Troponin-I null 0.00 - 0.40 10/30/2014 [facility] CARDIAC ENZYMES Total CK 63 unit/L 12 - 191 10/30/2014 [facility] ELECTROLYTES AGAP 10.0 meq/L 10.0 - 20.0 10/30/2014 [facility] ELECTROLYTES Calcium Lvl 8.6 mg/dL 8.5 - 10.5 10/30/2014 [facility] ELECTROLYTES CO2 27 meq/L 24 - 32 10/30/2014 [facility] ELECTROLYTES eGFR 48 mL/min/1.73m2 10/30/2014 2Result Comment: The eGFR is calculated using [...] from the National Kidney Disease Education Program (NKDEP) which additionally recommends that when the eGFR is used in patients with extremes of body mass index for purposes of drug dosing, the eGFR should be multiplied by the estimated BMI. [facility] ELECTROLYTES Creatinine Lvl 1.1 mg/dL 0.5 - 1.4 10/30/2014 [facility] ELECTROLYTES BUN 15 mg/dL 7 - 22 10/30/2014 [facility] ELECTROLYTES Potassium Lvl 4.0 meq/L 3.5 - 5.1 10/30/2014 [facility] ELECTROLYTES Sodium Lvl 138 meq/L 135 - 145 10/30/2014 [facility] ELECTROLYTES Chloride Lvl 105 meq/L 95 - 109 10/30/2014 [facility] ELECTROLYTES Glucose Lvl 121 mg/dL 70 - 99 10/30/2014 3Interpretive Data: Adult reference range values reflect the clinical guidelines of the [place] [employer]. [facility] HEMATOLOGY RDW 12.3 % 11.5 - 14.5 10/30/2014 [facility] Platelet 197 K/CMM 133 - 450 10/30/2014 [facility] HEMATOLOGY MPV 8.9 fL 7.4 - 10.4 10/30/2014 [facility] HEMATOLOGY MCV 93.4 fL 80.0 - 98.0 10/30/2014 [facility] HEMATOLOGY Hgb 11.4 g/dL 12.0 - 16.0 10/30/2014 [facility] MCH 31.0 pg 27.0 - 31.0 10/30/2014 [facility] MCHC 33.2 g/dL 32.0 - 36.0 10/30/2014 [facility] Hct 34.4 % 36.0 - 48.0 10/30/2014 [facility] HEMATOLOGY RBC 3.68 M/CMM 4.20 - 5.40 10/30/2014 [facility] WBC 5.5 K/CMM 3.7 - 10.4 10/30/2014 [facility] CARDIAC ENZYMES Troponin-I null 0.00 - 0.40 10/30/2014 [facility] CARDIAC ENZYMES Total CK 61 unit/L 12 - 191 10/30/2014 [facility] LIPIDS VLDL 16 10/30/2014 [facility] LIPIDS LDL (Calculated) 147 mg/dL <=99 mg/dL 10/30/2014 [facility] LIPIDS Chol 243 mg/dL <=199 mg/dL 10/30/2014 [facility] LIPIDS HDL 80 mg/dL >=61 mg/dL 10/30/2014 [facility] LIPIDS CHD Risk 3.04 3.90 - 5.80 10/30/2014 [facility] LIPIDS Trig 82 mg/dL <=149 mg/dL 10/30/2014 [facility] Spine cervical 2 or 3 views Spine cervical 2 or 3 views Cervical spine, 3 views. HISTORY: Pain. COMPARISON: None available. FINDINGS: No fracture is seen. Vertebral body heights are maintained. No prevertebral soft tissue swelling. Mild degenerative disc space narrowing is noted at C5/C6 and C7/T1. There is grade 1 anterolisthesis of C3 on C4 and of C4 on C5. Moderate hypertrophic facet arthrosis bilaterally throughout the cervical spine, greatest spanning C3/C4 through C5/C6. SL: 11/03/2013 - - Read by: Ge Bernal MD Dictated Date/time: 11/03/13 13:27 Electronically Signed by: Ge Bernal MD 11/03/13 13:28 FINAL REPORT [facility] Hip min 2 views Hip min 2 views Right hip, 2 views: HISTORY: Pain COMPARISON: 07/12/2009. FINDINGS: No change since the prior exam. No fracture or dislocation. No acute osseous abnormality. Joint spaces preserved. Mild enthesophytosis of the greater trochanter is again noted. SL: 11/03/2013 - - Read by: Ge Bernal MD Dictated Date/time: 11/03/13 13:25 Electronically Signed by: Ge Bernal MD 11/03/13 13:26 FINAL REPORT [facility] Spine lumbar 2 or 3 views Spine lumbar 2 or 3 views Lumbar spine, 3 views. HISTORY: Pain. COMPARISON: 07/12/2009. FINDINGS: No fracture is seen. Vertebral body heights are maintained. No spondylolisthesis. There is severe degenerative disc narrowing and hypertrophic facet arthrosis L3/L4, L4/L5, and L5/S1 with moderate lumbar levoscoliosis centered at L4. SL: 11/03/2013 - - Read by: Ge Bernal MD Dictated Date/time: 11/03/13 13:29 Electronically Signed by: Ge Bernal MD 11/03/13 13:31 FINAL REPORT [facility] Spine sacrum AP and Lat Spine sacrum AP and Lat Sacrum, 2 views. HISTORY: Pain. COMPARISON: None available. FINDINGS: No fracture is seen. Sacroiliac joints are preserved. Severe lower lumbar spondylosis, partially characterized. SL: 13 11/03/2013 - - Read by: Ge Bernal MD Dictated Date/time: 11/03/13 13:28 Electronically Signed by: Ge Bernal MD 11/03/13 13:29 FINAL REPORT [facility] Vital Signs Vital Sign Value Date Comments Source Heart Rate 82 02/12/2016 [facility] Temperature Oral (F) 98.2 F 02/12/2016 [facility] Respitory Rate 20 02/12/2016 [facility] Systolic (mm Hg) 148 02/12/2016 [facility] Diastolic (mm Hg) 73 02/12/2016 [facility] Temperature Oral (F) 98.0 F 02/12/2016 [facility] Heart Rate 73 02/12/2016 [facility] Systolic (mm Hg) 153 02/12/2016 [facility] Diastolic (mm Hg) 80 02/12/2016 [facility] Respitory Rate 20 02/12/2016 [facility] Systolic (mm Hg) 171 02/12/2016 [facility] Diastolic (mm Hg) 72 02/12/2016 [facility] Respitory Rate 18 02/12/2016 [facility] Heart Rate 73 02/12/2016 [facility] Temperature Oral (F) 98.2 F 02/12/2016 [facility] Weight 72.727 02/09/2016 [facility] BMI Calculated 27.69 01/26/2016 [facility] Weight 73.182 01/26/2016 [facility] Height 162.56 cm 01/26/2016 [facility] Temperature Oral (F) 98.2 F 10/31/2014 [facility] Heart Rate 59 10/31/2014 [facility] Respitory Rate 18 10/31/2014 [facility] Systolic (mm Hg) 164 10/31/2014 [facility] Diastolic (mm Hg) 66 10/31/2014 [facility] Systolic (mm Hg) 120 10/31/2014 [facility] Diastolic (mm Hg) 63 10/31/2014 [facility] Heart Rate 74 10/31/2014 [facility] Respitory Rate 18 10/31/2014 [facility] Temperature Oral (F) 98.1 F 10/31/2014 [facility] Heart Rate 79 10/31/2014 [facility] Respitory Rate 18 10/31/2014 [facility] Temperature Oral (F) 98.4 F 10/31/2014 [facility] Systolic (mm Hg) 142 10/31/2014 [facility] Diastolic (mm Hg) 71 10/31/2014 [facility] Height 162.56 cm 10/30/2014 [facility] Weight 74.227 10/30/2014 [facility] BMI Calculated 28.09 10/30/2014 [facility] Encounters Location Location Details Encounter Type Encounter Number Reason For Visit Attending Provider ADM Date DC Date Status Source [facility] Outpatient [id number] Lou Cole 11/03/2013 11/04/2013 [facility] OBS Observation Patient [id number] Abdi Ferguson 10/30/2014 10/31/2014 [facility] Inpatient [id number] Raudel Castro Jr 02/09/2016 02/12/2016 [facility] OP Therapy Patients [id number] Raudel Castro Jr 06/01/2016 07/01/2016 [facility] Procedures Procedure Code Date Perfomer Comments Source Appendectomy [id number] [facility] Arthroscopy of knee with meniscus repair [id number] [facility] BSO - Total abdominal hysterectomy and bilateral salpingo-oophorectomy [id number] [facility] Cataract surgery [id number] [facility] Removal of intracranial extradural tumor [id number] [facility] Appendectomy [id number] [facility] Arthroscopy of knee with meniscus repair [id number] [facility] BSO - Total abdominal hysterectomy and bilateral salpingo-oophorectomy [id number] [facility] Cataract surgery [id number] [facility] Removal of intracranial extradural tumor [id number] [facility] Appendectomy [id number] [facility] Arthroscopy of knee with meniscus repair [id number] [facility] BSO - Total abdominal hysterectomy and bilateral salpingo-oophorectomy [id number] [facility] Cataract surgery [id number] [facility] Removal of intracranial extradural tumor [id number] [facility]
--- OUTSIDE RECORDS SUMMARY | 2018-08-08 17:55 | XMS REPORT | Summary of Care ---
Author Author [facility] Organization [facility] Address Unknown Phone Unavailable Encounter ARTIS Zuleta(LAST) [id number] Date(s): 02/09/16 - 02/12/[address] [address]- Discharge Disposition: Home or Self Care Attending Physician: Raudel Adams MD Admitting Physician: Raudel Adams MD Referring Physician: Raudel Adams MD Vital Signs 1 2 3 Most recent to oldest [Reference Range]: 162.56 cm (01/26/16 2:14 PM) Height 98.2 DegF (02/12/16 3:06 PM) 98.0 DegF (02/12/16 11:37 AM) 98.2 DegF (02/12/16 7:31 AM) Temperature Oral [96.4-99.1 DegF] 148/73 mmHg *HI* (02/12/16 3:06 PM) 153/80 mmHg *HI* (02/12/16 11:37 AM) 171/72 mmHg *HI* (02/12/16 7:31 AM) Blood Pressure [90-140/60-90 mmHg] 20 BRMIN (02/12/16 3:06 PM) 20 BRMIN (02/12/16 11:37 AM) 18 BRMIN (02/12/16 7:31 AM) Respiratory Rate [14-20 BRMIN] 82 bpm (02/12/16 3:06 PM) 73 bpm (02/12/16 11:37 AM) 73 bpm (02/12/16 7:31 AM) Peripheral Pulse Rate [60-100 bpm] 72.727 kg (02/09/16 6:08 AM) 73.182 kg (01/26/16 2:14 PM) Weight 27.69 m2 (01/26/16 2:14 PM) Body Mass Index Problem List Condition Effective Dates Status Health Status Informant Arthritis(Confirmed) Active Bacterial Resolved meningitis(Confirmed ) Fibromyalgia(Confirm Resolved ed) Fibromyalgia(Confirm Active ed) History of migraine Active headaches(Confirmed) Knee pain(Confirmed) Active Tumor of eighth Resolved cranial nerve(Confirmed) Allergies, Adverse Reactions, Alerts Substance Reaction Severity Status contrast media MIGRAINES Active (iodine-based) NKDA Active Medications acetaminophen 1,000 mg, 100 mL, Route: IVPB, Drug form: INJ, Q6Hnow, Dosing Weight 72.727, kg, Start date: 02/09/16 15:00:00 CDT, Duration: 30 day, Stop date: 03/10/16 9:00:00 CDT Notes: Infuse over 15 minutesDo not exceed 4gm/day of acetaminophen MEDICAT ION WASTE Product Size: 1000 mgProduct Wasted: 0___ mg Start Date: 02/09/16 Stop Date: 02/10/16 Status: Discontinued acetaminophen 1,000 mg, 2 tab, Route: PO, Drug form: TAB, Q6H, Start date: 02/10/16 6:00:00 CD T, Duration: 30 day, Stop date: 03/11/16 0:00:00 CDT Notes: Max acetaminophen 4000 mg/day (4 gm/day). (Same as: Tylenol Extra Streng th) Start Date: 02/10/16 Stop Date: 02/11/16 Status: Voided With Results acetaminophen 1,000 mg, Route: IVPB, Q6Hnow, Dosing Weight 72.727, kg, Start date: 02/09/16 11 :00:00 CDT, Duration: 30 day, Stop date: 03/10/16 5:00:00 CDT Start Date: 02/09/16 Stop Date: 02/09/16 Status: Deleted acetaminophen (ANES) (ANES) Route: IV, Drug form: INJ, Start date: 02/09/16 9:00:00 CDT, Stop date: 02/09/16 10:00:00 CDT Start Date: 02/09/16 Stop Date: 02/09/16 Status: Completed Al hydroxide/Mg hydroxide/simethicone 200 mg-200 mg-20 mg/5 mL oral suspension 30 mL, Route: PO, Drug Form: SUSP, Dosing Weight 72.727, kg, Q4H, PRN Indigestio n, Start date: 02/09/16 10:17:00 CDT, Duration: 30 day, Stop date: 03/10/16 10:1 6:00 CDT Notes: (aluminum hydroxide-magnesium hyd-simethicone [id number]/5ml 30 ml ud S US) Start Date: 02/09/16 Stop Date: 02/12/16 Status: Discontinued ANES albuterol 0.083% inhalation solution 2.49 mg, 3 mL, Route: NEB, Drug form: SOLN, Q20Min, Dosing Weight 72.727, kg, MD N Wheezing, Priority: STAT, Start date: 02/09/16 10:42:00 CDT, Duration: 30 day, Stop date: 03/10/16 10:41:00 CDT Notes: SEE RT DOCUMENTATION (Same as: Juvencio) Start Date: 02/09/16 Stop Date: 02/09/16 Status: Discontinued ANES diphenhydrAMINE 12.5 mg, 0.25 mL, Route: IVP, Drug form: INJ, Q6H, Dosing Weight 72.727, kg, PRN Itching, Start date: 02/09/16 10:42:00 CDT, Duration: 30 day, Stop date: 10:41:00 CDT Notes: (Same as: Benadryl) Start Date: 02/09/16 Stop Date: 02/09/16 Status: Deleted ANES fentaNYL 25 microgram, 0.5 mL, Route: IVP, Drug form: INJ, Q5Min, Dosing Weight 72.727, k g, PRN Pain Score 4-6, Start date: 02/09/16 10:42:00 CDT, Duration: 4 doses or t imes, Stop date: Limited # of times Notes: (Same as: Sublimaze) Preservative free. Start Date: 02/09/16 Stop Date: 02/09/16 Status: Discontinued ANES flumazenil 0.2 mg, 2 mL, Route: IVP, Drug form: INJ, PRN, Dosing Weight 72.727, kg, PRN Domenic zodiazepine Reversal, Initial dose, Start date: 02/09/16 10:42:00 CDT, Duration: 30 day, Stop date: 03/10/16 10:41:00 CDT Notes: (Same as: Romazicon) Start Date: 02/09/16 Stop Date: 02/09/16 Status: Discontinued ANES hydrALAZINE 10 mg, 0.5 mL, Route: IVP, Drug form: INJ, Q20Min, Dosing Weight 72.727, kg, PRN Elevated BP, Start date: 02/09/16 10:42:00 CDT, Duration: 2 doses or times, Stop date: Limited # of times Notes: (Same as: Apresoline)Push over 5 minutes Start Date: 02/09/16 Stop Date: 02/09/16 Status: Discontinued ANES HYDROmorphone 0.5 mg, 0.5 mL, Route: IVP, Drug form: INJ, Q5Min, Dosing Weight 72.727, kg, PRN Pain Score 7-10, Start date: 02/09/16 10:42:00 CDT, Duration: 4 doses or times, Stop date: Limited # of times Notes: Same as: Dilaudid Start Date: 02/09/16 Stop Date: 02/09/16 Status: Discontinued ANES labetalol 10 mg, 2 mL, Route: IVP, Drug form: INJ, Q5Min, Dosing Weight 72.727, kg, PRN El evated BP, Start date: 02/09/16 10:42:00 CDT, Duration: 5 doses or times, Stop d ate: Limited # of times Start Date: 02/09/16 Stop Date: 02/09/16 Status: Discontinued ANES naloxone 0.4 mg, 1 mL, Route: IVP, Drug form: INJ, Q2MIN, Dosing Weight 72.727, kg, PRN N arcotic Reversal, Start date: 02/09/16 10:42:00 CDT, Duration: 8 doses or times, Stop date: Limited # of times Notes: Same as Narcan Start Date: 02/09/16 Stop Date: 02/09/16 Status: Discontinued ANES ondansetron 4 mg, 2 mL, Route: IVP, Drug form: INJ, ONCE, Dosing Weight 72.727, kg, PRN Naus ea & Vomiting, Start date: 02/09/16 10:42:00 CDT Notes: (Same as: Zofran) MEDICATION WASTE Product Size: 4 mgProduct Was kandis: 0___ mg Start Date: 02/09/16 Stop Date: 02/09/16 Status: Discontinued ANES promethazine 6.25 mg, 25 mL, Route: IVPB, Drug form: SOLN, ONCE, Dosing Weight 72.727, kg, MD N Nausea & Vomiting, Start date: 02/09/16 10:42:00 CDT Start Date: 02/09/16 Stop Date: 02/09/16 Status: Discontinued aspirin 325 mg tablet, enteric coated 325 mg=1 tab, PO, BID, # 60 tab, 0 Refill(s) Start Date: 02/11/16 Status: Ordered bisacodyl 10 mg, 1 supp, Route: MD, Drug form: SUPP, Daily, Dosing Weight 72.727, kg, PRN Constipation, Start date: 02/09/16 10:43:00 CDT, Duration: 30 day, Stop date: 10:42:00 CDT Notes: (Same As: Dulcolax, Bisco-Lax) Start Date: 02/09/16 Stop Date: 02/12/16 Status: Discontinued ceFAZolin 2 gm, 50 mL, Route: IV, Drug form: INJ, PRE OP, Start date: 02/09/16 5:00:00 CDT , Duration: 1 day, Stop date: 02/10/16 4:59:00 CDT Start Date: 02/09/16 Stop Date: 02/09/16 Status: Discontinued ceFAZolin (ANES) Route: IV, Drug form: INJ, ONCE, Stop date: 02/09/16 9:29:00 CDT Start Date: 02/09/16 Stop Date: 02/09/16 Status: Completed ceFAZolin (SCIP) 2 gm, 50 mL, Route: IV, Drug form: INJ, [id number], Dosing Weight 72.727, kg, Start date: 02/09/16 14:00:00 CDT, Duration: 2 doses or times, Stop date: 02/09/16 20: 00:00 CDT Start Date: 02/09/16 Stop Date: 02/09/16 Status: Completed celecoxib 200 mg, 1 cap, Route: PO, Drug form: CAP, [id number], Dosing Weight 72.727, kg, Sta rt date: 02/09/16 11:00:00 CDT, Duration: 30 day, Stop date: 03/09/16 23:00:00 C DT Notes: NSAID. Please check indication. Not for seizure. (Same As: CeleBREX) Start Date: 02/09/16 Stop Date: 02/12/16 Status: Discontinued celecoxib 200 mg, Route: PO, [id number], Dosing Weight 72.727, kg, Start date: 02/09/16 11:00 :00 CDT, Duration: 30 day, Stop date: 03/09/16 23:00:00 CDT Start Date: 02/09/16 Stop Date: 02/09/16 Status: Deleted dexamethasone (ANES) Route: IV, Drug form: INJ, ONCE, Stop date: 02/09/16 9:34:00 CDT Start Date: 02/09/16 Stop Date: 02/09/16 Status: Completed diphenhydrAMINE 12.5 mg, 5 mL, Route: PO, Drug form: LIQ, Q6H, Dosing Weight 72.727, kg, PRN Itc curry, Start date: 02/09/16 10:17:00 CDT, Duration: 30 day, Stop date: 03/10/16 1 0:16:00 CDT Notes: (Same as: Benadryl) Start Date: 02/09/16 Stop Date: 02/12/16 Status: Discontinued docusate 100 mg, Route: PO, BID, Dosing Weight 72.727, kg, Start date: 02/09/16 17:00:00 CDT, Duration: 30 day, Stop date: 03/10/16 9:00:00 CDT Start Date: 02/09/16 Stop Date: 02/09/16 Status: Deleted docusate 100 mg, 1 cap, Route: PO, Drug form: CAP, BID, Dosing Weight 72.727, kg, Start d ate: 02/09/16 17:00:00 CDT, Duration: 30 day, Stop date: 03/10/16 9:00:00 CDT Notes: (Same as: Colace) (Do Not Crush) Start Date: 02/09/16 Stop Date: 02/12/16 Status: Discontinued docusate sodium 100 mg oral capsule 100 mg=1 cap, PO, BID, # 60 cap, 0 Refill(s) Start Date: 02/11/16 Status: Ordered DuoNeb inhalation solution 3 ml, Route: NEB, Drug Form: SOLN, Dosing Weight 72.727, kg, PRN, PRN Respirator y Protocol, Start date: 02/09/16 12:12:00 CDT, Duration: 30 day, Stop date: 02/19 06/05 12:11:00 CDT Notes: (Same as: Duoneb) Start Date: 02/09/16 Stop Date: 02/12/16 Status: Discontinued enoxaparin 30 mg, 0.3 mL, Route: SUB-Q, Drug form: INJ, [id number], Dosing Weight 72.727, kg, Start date: 02/09/16 22:16:00 CDT, Duration: 30 day, Stop date: 03/09/16 22:16: 00 CDT Notes: (Same as: Lovenox) Start Date: 02/09/16 Stop Date: 02/12/16 Status: Discontinued ePHEDrine (ANES) Route: IV, Drug form: INJ, ONCE, Stop date: 02/09/16 9:34:00 CDT Start Date: 02/09/16 Stop Date: 02/09/16 Status: Completed fentaNYL (ANES) Route: IV, Drug form: INJ, ONCE, Stop date: 02/09/16 9:59:00 CDT Start Date: 02/09/16 Stop Date: 02/09/16 Status: Completed fentaNYL (ANES) Route: IV, Drug form: INJ, ONCE, Stop date: 02/09/16 9:14:00 CDT Start Date: 02/09/16 Stop Date: 02/09/16 Status: Completed gabapentin 300 mg, 1 cap, Route: PO, Drug form: CAP, Q8Hnow, Dosing Weight 72.727, kg, Star t date: 02/09/16 11:00:00 CDT, Duration: 30 day, Stop date: 03/10/16 3:00:00 CDT Notes: (Same as: Neurontin) Start Date: 02/09/16 Stop Date: 02/12/16 Status: Discontinued glycopyrrolate (ANES) Route: IV, Drug form: INJ, ONCE, Stop date: 02/09/16 9:34:00 CDT Start Date: 02/09/16 Stop Date: 02/09/16 Status: Completed hydromorphone 0.3 mg, 0.3 mL, Route: IVP, Drug form: INJ, Q4H, Dosing Weight 72.727, kg, PRN P ain Score 7-10, Start date: 02/09/16 10:17:00 CDT, Duration: 30 day, Stop date: 03/10/16 10:16:00 CDT Notes: Same as: Dilaudid Start Date: 02/09/16 Stop Date: 02/12/16 Status: Discontinued hydromorphone 0.3 mg, Route: IVP, Q4H, Dosing Weight 72.727, kg, PRN Pain Score 7-10, Start da te: 02/09/16 10:43:00 CDT, Duration: 30 day, Stop date: 03/10/16 10:42:00 CDT Start Date: 02/09/16 Stop Date: 02/09/16 Status: Deleted influenza virus vaccine, inactivated 0.5 mL, Route: IM, Drug Form: SUSP, Daily, Start date: 02/10/16 9:00:00 CDT, Dur ation: 1 doses or times, Stop date: 02/10/16 9:00:00 CDT Notes: (Same as: Fluzone Quadrivalent, Fluarix Quadrivalent)For 3 years of age a nd older (0.5 mL IM)Shake well before use Start Date: 02/10/16 Stop Date: 02/10/16 Status: Completed influenza virus vaccine, inactivated 0.5 mL, Route: IM, Drug Form: SUSP, Daily, Start date: 02/11/16 6:00:00 CDT, Dur ation: 1 doses or times, Stop date: 02/11/16 6:00:00 CDT Notes: (Same as: Fluzone Quadrivalent, Fluarix Quadrivalent)For 3 years of age a nd older (0.5 mL IM)Shake well before use Start Date: 02/11/16 Stop Date: 02/11/16 Status: Completed Lactated Ringers 1,000 mL 1,000 mL, Rate: 125 ml/hr, Infuse over: 8 hr, Route: IV, Dosing Weight 72.727 kg , Total Volume: 1,000, Start date: 02/09/16 10:42:00 CDT, Duration: 30 day, Stop date: 03/10/16 10:41:00 CDT Start Date: 02/09/16 Stop Date: 02/09/16 Status: Discontinued Lactated Ringers 1,000 mL 1,000 mL, Rate: 40 ml/hr, Infuse over: 25 hr, Route: IV, Dosing Weight 73.182 kg , Total Volume: 1,000, Start date: 02/09/16 6:31:00 CDT, Duration: 30 day, Stop date: 03/10/16 6:30:00 CDT Start Date: 02/09/16 Stop Date: 02/09/16 Status: Discontinued lidocaine (ANES) Route: IV, Drug form: INJ, ONCE, Stop date: 02/09/16 9:14:00 CDT Start Date: 02/09/16 Stop Date: 02/09/16 Status: Completed lidocaine 1% 5 mg, 0.5 mL, Route: INTRADERM, Drug Form: INJ, Dosing Weight 73.182, kg, ONCALL , Start date: 02/09/16 7:00:00 CDT, Duration: 30 day, Stop date: 03/10/16 6:59:0 0 CDT Notes: (Same as: Xylocaine) Start Date: 02/09/16 Stop Date: 02/09/16 Status: Completed Lidoderm 5% topical film (patch) 1 patch, Route: TOP, Q24H, Drug form: FILM, Start date: 02/09/16 11:00:00 CDT, D uration: 30 day, Stop date: 03/09/16 11:00:00 CDT Notes: Apply only once for up to 12 hours in [id number] period (12 hours on and 12 hours off).(Same as: Lidoderm)"Remove old patch before application of new patch" Start Date: 02/09/16 Stop Date: 02/12/16 Status: Discontinued Lidoderm 5% topical film (patch) 1 patch, Route: TOP, Q24H, Start date: 02/09/16 11:00:00 CDT, Duration: 30 day, Stop date: 03/09/16 11:00:00 CDT Start Date: 02/09/16 Stop Date: 02/09/16 Status: Deleted LR 1000 mL INJ (ANES) Route: IV, Total Volume: 1,000, Start date: 02/09/16 8:12:00 CDT, Stop date: 9:12:00 CDT Start Date: 02/09/16 Stop Date: 02/09/16 Status: Completed Lyrica 150 mg oral capsule 150 mg=1 cap, PO, Daily, 0 Refill(s) Start Date: 01/26/16 Status: Ordered melatonin 3 mg, 1 tab, Route: PO, Drug form: TAB, Bedtime, Dosing Weight 72.727, kg, PRN I nsomnia, Start date: 02/09/16 10:17:00 CDT, Duration: 30 day, Stop date: 6 10:16:00 CDT Notes: (Same as: Melatonin) Start Date: 02/09/16 Stop Date: 02/12/16 Status: Discontinued methocarbamol 1,000 mg, 2 tab, Route: PO, Drug form: TAB, Q8H, Dosing Weight 72.727, kg, PRN M uscle Spasms, Start date: 02/09/16 10:17:00 CDT, Duration: 30 day, Stop date: 10:16:00 CDT Notes: (Same as:Robaxin) Start Date: 02/09/16 Stop Date: 02/12/16 Status: Discontinued methocarbamol 1,000 mg, 2 tab, Route: PO, Drug form: TAB, Q8H, Dosing Weight 72.727, kg, PRN M uscle Spasms, Start date: 02/09/16 10:43:00 CDT, Duration: 30 day, Stop date: 10:42:00 CDT Notes: (Same as:Robaxin) Start Date: 02/09/16 Stop Date: 02/09/16 Status: Deleted methocarbamol 500 mg oral tablet 1,000 mg=2 tab, PO, Q8H, PRN Muscle Spasms, # 60 tab, 0 Refill(s) Start Date: 02/11/16 Stop Date: 02/20/16 Status: Ordered nalbuphine 2 mg, 0.2 mL, Route: IVP, Drug form: INJ, Q2H, Dosing Weight 72.727, kg, PRN Itc curry, Start date: 02/09/16 10:43:00 CDT, Duration: 5 doses or times, Stop date: Limited # of times Notes: (Same As: Nubain) Start Date: 02/09/16 Stop Date: 02/12/16 Status: Discontinued naloxone 0.1 mg, 0.25 mL, Route: IVP, Drug form: INJ, Q2MIN, Dosing Weight 72.727, kg, MD N Narcotic Reversal, Start date: 02/09/16 10:43:00 CDT, Duration: 8 doses or rustam es, Stop date: Limited # of times Notes: Same as Narcan Start Date: 02/09/16 Stop Date: 02/11/16 Status: Discontinued non-formulary PO, Daily, Refill(s) 0 Start Date: 01/26/16 Stop Date: 02/11/16 Status: Discontinued [place] 5/325 oral tablet 2 tab, Route: PO, Drug Form: TAB, Dosing Weight 72.727, kg, Q6H, PRN Pain Score 7-10, Start date: 02/10/16 19:11:00 CDT, Duration: 30 day, Stop date: 03/11/16 1 9:10:00 CDT Notes: (Same as: [place] 325/5) Do not exceed 4gm/day of acetaminophen. Start Date: 02/10/16 Stop Date: 02/12/16 Status: Discontinued [place] 5/325 oral tablet 1 tab, Route: PO, Drug Form: TAB, Dosing Weight 72.727, kg, Q6H, PRN Pain Score 4-6, Start date: 02/10/16 16:33:00 CDT, Duration: 30 day, Stop date: 03/11/16 16 :32:00 CDT Notes: (Same as: [place] 325/5) Do not exceed 4gm/day of acetaminophen. Start Date: 02/10/16 Stop Date: 02/12/16 Status: Discontinued ondansetron 4 mg, 2 mL, Route: IVP, Drug form: INJ, Q8H, Dosing Weight 72.727, kg, PRN Nause a & Vomiting, Start date: 02/09/16 10:17:00 CDT, Duration: 30 day, Stop date: 03/10/16 10:16:00 CDT Notes: (Same as: Zofran) MEDICATION WASTE Product Size: 4 mgProduct Was kandis: _0__ mg Start Date: 02/09/16 Stop Date: 02/12/16 Status: Discontinued ondansetron 4 mg, Route: IVP, Q8H, Dosing Weight 72.727, kg, PRN Nausea & Vomiting, Start date: 02/09/16 10:43:00 CDT, Duration: 30 day, Stop date: 03/10/16 10:42:00 CDT Start Date: 02/09/16 Stop Date: 02/09/16 Status: Deleted ondansetron (ANES) Route: IV, Drug form: INJ, ONCE, Stop date: 02/09/16 9:44:00 CDT Start Date: 02/09/16 Stop Date: 02/09/16 Status: Completed oxyCODONE 5 mg immediate release 10 mg, 2 tab, Route: PO, Drug form: TAB, Q4H, Dosing Weight 72.727, kg, PRN Pain Score 7-10, Start date: 02/09/16 10:17:00 CDT, Duration: 30 day, Stop date: 10:16:00 CDT Notes: (Same as: Roxicodone) Start Date: 02/09/16 Stop Date: 02/09/16 Status: Deleted oxyCODONE 5 mg immediate release 5 mg, 1 tab, Route: PO, Drug form: TAB, Q4H, Dosing Weight 72.727, kg, PRN Pain Score 4-6, Start date: 02/09/16 10:17:00 CDT, Duration: 30 day, Stop date: 03/10 10:16:00 CDT Notes: (Same as: Roxicodone) Start Date: 02/09/16 Stop Date: 02/10/16 Status: Discontinued oxyCODONE 5 mg immediate release 10 mg, 2 tab, Route: PO, Drug form: TAB, Q4H, Dosing Weight 72.727, kg, PRN Pain Score 7-10, Start date: 02/09/16 10:43:00 CDT, Duration: 30 day, Stop date: 10:42:00 CDT Notes: (Same as: Roxicodone) Start Date: 02/09/16 Stop Date: 02/10/16 Status: Discontinued oxyCODONE 5 mg immediate release 5 mg, Route: PO, Drug form: TAB, Q4H, Dosing Weight 72.727, kg, PRN Pain Score 4 -6, Start date: 02/09/16 10:43:00 CDT, Duration: 30 day, Stop date: 03/10/16 10: 42:00 CDT Start Date: 02/09/16 Stop Date: 02/09/16 Status: Deleted pregabalin 100 mg, Route: PO, Q8Hnow, Dosing Weight 72.727, kg, Start date: 02/09/16 11:00: 00 CDT, Duration: 30 day, Stop date: 03/10/16 3:00:00 CDT Start Date: 02/09/16 Stop Date: 02/09/16 Status: Deleted propofol (ANES) Route: IV, Drug form: INJ, ONCE, Stop date: 02/09/16 9:29:00 CDT Start Date: 02/09/16 Stop Date: 02/09/16 Status: Completed remove patch 1 patch, Route: TOP, Q24H, Drug form: ERFILM, Start date: 02/09/16 23:00:00 CDT, Duration: 30 day, Stop date: 03/09/16 23:00:00 CDT Start Date: 02/09/16 Stop Date: 02/12/16 Status: Discontinued senna 17.2 mg, 2 tab, Route: PO, Drug Form: TAB, Dosing Weight 72.727, kg, Bedtime, St art date: 02/09/16 21:00:00 CDT, Duration: 30 day, Stop date: 03/09/16 21:00:00 CDT Notes: (Same as: Senokot) Start Date: 02/09/16 Stop Date: 02/12/16 Status: Discontinued sodium chloride 0.45% 1000 ml INJ 1,000 mL 1,000 mL, Rate: 75 ml/hr, Infuse over: 13.3 hr, Route: IV, Dosing Weight 72.727 kg, Total Volume: 1,000, Start date: 02/09/16 10:17:00 CDT, Duration: 30 day, St op date: 03/10/16 10:16:00 CDT Start Date: 02/09/16 Stop Date: 02/11/16 Status: Discontinued Synthroid 25 microgram, 1 tab, Route: PO, Drug form: TAB, [id number], Dosing Weight 72.727, kg , Start date: 02/10/16 6:30:00 CDT, Duration: 30 day, Stop date: 03/10/16 6:30:0 0 CDT Notes: Take 1 hour before or 2 hours after meal; Enteral feeds may interefere wi th the absorption of this medication. (Same as:Levothroid) Start Date: 02/10/16 Stop Date: 02/12/16 Status: Discontinued temazepam 30 mg oral capsule 30 mg=1 cap, PO, Bedtime, PRN Sleep, # 14 cap, 0 Refill(s) Start Date: 01/26/16 Stop Date: 02/09/16 Status: Ordered tramadol 50 mg, Route: PO, Drug form: TAB, Q6Hnow, Dosing Weight 72.727, kg, Start date: 02/09/16 11:00:00 CDT, Duration: 30 day, Stop date: 03/10/16 5:00:00 CDT Start Date: 02/09/16 Stop Date: 02/09/16 Status: Deleted tramadol 100 mg, 2 tab, Route: PO, Drug form: TAB, Q6Hnow, Dosing Weight 72.727, kg, Star t date: 02/09/16 11:00:00 CDT, Duration: 30 day, Stop date: 03/10/16 5:00:00 CDT Notes: Not to exceed 400mg/day. (Same As: Ultram) Start Date: 02/09/16 Stop Date: 02/12/16 Status: Discontinued tranexamic acid (ANES) (ANES) Route: IV, Drug form: INJ, Start date: 02/09/16 8:20:00 CDT, Stop date: 02/09/16 9:20:00 CDT Start Date: 02/09/16 Stop Date: 02/09/16 Status: Completed Tylenol PO, 0 Refill(s) Start Date: 02/09/16 Status: Ordered Urecholine 25 mg, 2.5 tab, Route: PO, Drug form: TAB, TID, Dosing Weight 72.727, kg, PRN Ot her -See Comment, Start date: 02/10/16 13:55:00 CDT, Duration: 30 day, Stop date : 03/11/16 13:54:00 CDT Notes: Take on empty stomach. (Same As: Urecholine) Start Date: 02/10/16 Stop Date: 02/12/16 Status: Discontinued Results ELECTROLYTES 1 2 3 Most recent to oldest [Reference Range]: 136 mEq/L (02/10/16 3:07 AM) 143 mEq/L (01/26/16 2:50 PM) Sodium Lvl [135-145 mEq/L] 4.6 mEq/L (02/10/16 3:07 AM) 4.1 mEq/L (01/26/16 2:50 PM) Potassium Lvl [3.5-5.1 mEq/L] 104 mEq/L (02/10/16 3:07 AM) 110 mEq/L *HI* (01/26/16 2:50 PM) Chloride Lvl [95-109 mEq/L] 27 mEq/L (02/10/16 3:07 AM) 27 mEq/L (01/26/16 2:50 PM) CO2 [24-32 mEq/L] 9.6 mEq/L *LOW* (02/10/16 3:07 AM) 10.1 mEq/L (01/26/16 2:50 PM) AGAP [10.0-20.0 mEq/L] CHEM PANEL 1 2 3 Most recent to oldest [Reference Range]: 0.90 mg/dL (02/10/16 3:07 AM) 1.33 mg/dL (01/26/16 2:50 PM) Creatinine Lvl [0.50-1.40 mg/dL] 61 mL/min/1.73m2 1 *NA* (02/10/16 3:07 AM) 38 mL/min/1.73m2 2 *NA* (9/7/16 2:50 PM) eGFR 16 mg/dL (02/10/16 3:07 AM) 27 mg/dL *HI* (01/26/16 2:50 PM) BUN [7-22 mg/dL] 89 mg/dL (02/10/16 3:07 AM) 109 mg/dL *HI* (01/26/16 2:50 PM) Glucose Lvl [70-99 mg/dL] 8.0 mg/dL *LOW* (02/10/16 3:07 AM) 8.6 mg/dL (01/26/16 2:50 PM) Calcium Lvl [8.5-10.5 mg/dL] 1Result Comment: The eGFR is calculated using [...] be mul tiplied by the estimated BMI. URINE AND STOOL 1 2 3 Most recent to oldest [Reference Range]: Slight *ABN* (01/26/16 2:50 PM) UA Turbidity [Clear] Yellow *NA* (01/26/16 2:50 PM) UA Color [Yellow] 5.5 (01/26/16 2:50 PM) UA pH [5.0-8.0] 1.018 (01/26/16 2:50 PM) UA Spec Grav [<=1.030] Negative mg/dL *NA* (01/26/16 2:50 PM) UA Glucose [Negative mg/dL] Negative (01/26/16 2:50 PM) UA Blood [Negative] Negative mg/dL *NA* (01/26/16 2:50 PM) UA Ketones [Negative mg/dL] 10 mg/dL *ABN* (01/26/16 2:50 PM) UA Protein [Negative mg/dL] <=1.0 mg/dL *NA* (01/26/16 2:50 PM) UA Urobilinogen [0.1-1.0 mg/dL] Negative *NA* (01/26/16 2:50 PM) UA Bili [Negative] Trace *ABN* (01/26/16 2:50 PM) UA Leuk Est [Negative] Negative (01/26/16 2:50 PM) UA Nitrite [Negative] 1 /HPF (01/26/16 2:50 PM) UA WBC [0-5 /HPF] 1 /HPF (01/26/16 2:50 PM) UA RBC [0-2 /HPF] Occasional /HPF *NA* (01/26/16 2:50 PM) UA Bacteria [None Seen /HPF] Many /LPF *ABN* (01/26/16 2:50 PM) UA Sq Epi [Few /LPF] Few /LPF *NA* (01/26/16 2:50 PM) UA Mucus [None Seen /LPF] Performed *NA* (01/26/16 2:50 PM) Micro? HEMATOLOGY 1 2 3 Most recent to oldest [Reference Range]: 4.4 K/CMM (01/26/16 2:50 PM) WBC [3.7-10.4 K/CMM] 4.03 M/CMM *LOW* (01/26/16 2:50 PM) RBC [4.20-5.40 M/CMM] 10.8 g/dL *LOW* (02/12/16 5:37 AM) 11.1 g/dL *LOW* (02/10/16 3:07 AM) 12.3 g/dL (01/26/16 2:50 PM) Hgb [12.0-16.0 g/dL] 32.0 % *LOW* (02/12/16 5:37 AM) 32.5 % *LOW* (02/10/16 3:07 AM) 37.6 % (01/26/16 2:50 PM) Hct [36.0-48.0 %] 93.2 fL (01/26/16 2:50 PM) MCV [80.0-98.0 fL] 30.4 pg (01/26/16 2:50 PM) MCH [27.0-31.0 pg] 32.6 g/dL (01/26/16 2:50 PM) MCHC [32.0-36.0 g/dL] 12.7 % (01/26/16 2:50 PM) RDW [11.5-14.5 %] 204 K/CMM (01/26/16 2:50 PM) Platelet [133-450 K/CMM] 9.6 fL (01/26/16 2:50 PM) MPV [7.4-10.4 fL] 59.4 % (01/26/16 2:50 PM) Segs [45.0-75.0 %] 25.5 % (01/26/16 2:50 PM) Lymphocytes [20.0-40.0 %] 12.4 % *HI* (01/26/16 2:50 PM) Monocytes [2.0-12.0 %] 2.0 % (01/26/16 2:50 PM) Eosinophils [0.0-4.0 %] 0.7 % (01/26/16 2:50 PM) Basophils [0.0-1.0 %] 2.6 K/CMM (01/26/16 2:50 PM) Segs-Bands # [1.5-8.1 K/CMM] 1.1 K/CMM (01/26/16 2:50 PM) Lymphocytes # [1.0-5.5 K/CMM] 0.5 K/CMM (01/26/16 2:50 PM) Monocytes # [0.0-0.8 K/CMM] 0.1 K/CMM (01/26/16 2:50 PM) Eosinophils # [0.0-0.5 K/CMM] Immunizations Given and Recorded Vaccine Date Status [...] No Assessment and Plan Extracted from: Title: Discharge Summary * Author: Mohan Khan MD Date: 02/12/16 Discharge Information Discharged by primary team, ortho and to f/u with ortho next week Extracted from: Title: SOAP Note: Orthopedic* Author: Raudel Adams MD Date: 02/11/16 Plan cont pt plan dc home tomorrow after pt in afternoon
[2018-08-08] MEDS ORDERED: ASPIRIN 325 MG TAB PO ONE (18:30)
--- NOTE | 2018-08-08 19:08 | NUR ---
NOTIFIED DR PETIT BP 180/72, P 67. HYDRALAZINE 5MG IV ONCE ORDERED AT THIS TIME.
[2018-08-08] MEDS ORDERED: HYDRALAZINE HCL 20 MG/ML VIAL IV ONE ×2 (19:15→21:45)
--- NOTE | 2018-08-08 19:17 | NUR ---
VERBAL REPORT GIVEN TO TIANA DO.
--- NOTE | 2018-08-08 19:36 | NUR ---
assumed care of pt
--- NOTE | 2018-08-08 19:42 | Diagnostic Imaging Report ---
A single frontal view of the chest. HISTORY: Dizzy, chest pain COMPARISON: None available. DISCUSSION: Portable technique, limits sensitivity of the exam. Overlying monitoring leads. Tubes/Lines: None Lungs and pleura: The lungs are well inflated. No evidence of a consolidative pneumonia or pulmonary alveolar edema. No definite pleural effusion or pneumothorax is identified. Heart and mediastinum: The cardiomediastinal silhouette appears unremarkable. Bones and soft tissues: Right convex curvature of the thoracic spine. IMPRESSION: No acute radiographic abnormality. Signed by: Dr. Cristhian Cook D.O., M.M.M. on 08/08/2018 7:38 PM
--- NOTE | 2018-08-08 21:00 | NUR ---
report to be called to TIANA Guerrero at [phone]. Pt to go to room 203n when room is ready and in house cra calls when room is cleaned.
--- NOTE | 2018-08-08 21:22 | NUR ---
called [facility] to transport pt to [facility] to room 203
--- NOTE | 2018-08-08 21:40 | NUR ---
report to TIANA Guerrero
[2018-08-08] MEDS ORDERED: ONDANSETRON HCL INJ 2MG/ML 2ML 2 MG/ML VIAL IV ONE (21:45)
[2018-08-08 22:15] VITALS: BP 154/87
[2018-08-08] MEDS ORDERED: HYDRALAZINE HCL 20 MG/ML VIAL IV PRN (22:45)
[2018-08-08] MEDS ORDERED: MORPHINE SULFATE INJ 4 MG/ML INJ 1ML IV PRN (22:45)
[2018-08-08 23:00] VITALS: BP 154/87
[2018-08-08] MEDS ORDERED: LORAZEPAM INJ 2 MG/ML VIAL IV PRN (23:15)
[2018-08-09] VITALS (8 sets, daily range): BP systolic 132–152; BP diastolic 61–74
[2018-08-09] MEDS: ONDANSETRON HCL INJ 2MG/ML 2ML 2 MG/ML VIAL IV PRN ×2 (00:28→10:06)
[2018-08-09 05:00] LABS: CHOL/HDL RATIO 2.8 (3.0-3.6)
[2018-08-09 05:18] LABS: CREATINE KINASE MB 3.4 ng/mL (0-5.0)
[2018-08-09] MEDS ORDERED: PREGABALIN 100 MG PO SCH (09:00)
[2018-08-09] MEDS: ACETAMIN/BUTALBITAL/CAFFEINE TAB PO PRN (10:06)
[2018-08-09] MEDS: PREGABALIN 50 MG CAP PO SCH (10:06)
[2018-08-09] MEDS: ASPIRIN 325 MG TAB EC PO SCH (10:06)
[2018-08-09 10:32] LABS: CALCIUM 9.2 mg/dL (8.4-10.2); CREATININE, SERUM 1.28 mg/dL (0.57-1.11); MAGNESIUM 2.1 MG/DL (1.3-2.1)
[2018-08-09 10:54] LABS: FREE T4 (FREE THYROXINE) 0.95 ng/dL (0.9-1.8); THYROID STIMULATING HORMONE 3.856 uIU/mL (0.350-4.940)
[2018-08-09] MEDS ORDERED: IRBESARTAN150 MG PO (10:59)
[2018-08-09] MEDS ORDERED: CELEBREX100 MG PO (10:59)
[2018-08-09] MEDS ORDERED: LEXAPRO10 MG PO (10:59)
[2018-08-09] MEDS ORDERED: MORPHINE SULFATE 2 MG/ML SYR 1ML IV PRN (11:00)
[2018-08-09] MEDS ORDERED: ACETAMINOPHEN 325 MG TAB PO PRN (11:15)
[2018-08-09] MEDS ORDERED: MORPHINE SULFATE INJ 4 MG/ML INJ 1ML IV PRN (12:00)
[2018-08-09 12:31] LABS: BASOPHILS % 0.2 % (0.0-1.0); EOSINOPHILS % 0.7 % (0.0-6.0); HEMATOCRIT 34.4 % (34.2-44.1); HEMOGLOBIN 11.3 g/dL (12.0-16.0); LYMPHOCYTES # (AUTO) 0.7 (1.0-3.2); LYMPHOCYTES % 15.7 % (18.0-39.1); MEAN CORPUSCULAR HEMOGLOBIN 30.9 pg (28-32); MEAN CORPUSCULAR HGB CONC 32.8 g/dL (31-35); MONOCYTES # (AUTO) 0.6 (0.2-0.8); MONOCYTES % 13.9 % (4.4-11.3); PLATELET COUNT 224 x10e3/uL (140-360); RED BLOOD COUNT 3.66 x10e6/uL (3.6-5.1); RED CELL DISTRIBUTION WIDTH 12.7 % (11.7-14.4)
[2018-08-09 12:55] LABS: CREATINE KINASE MB 4.4 ng/mL (0-5.0)
--- NOTE | 2018-08-09 12:57 | Diagnostic Imaging Report ---
EXAM: Right upper quadrant abdominal ultrasound INDICATION: Epigastric pain. COMPARISON: None. TECHNIQUE: Transverse and longitudinal images of the right upper quadrant abdomen were obtained FINDINGS: Exam somewhat limited by overlying bowel gas. Liver: Size: Measures 12.7 cm in the right midclavicular line, normal Appearance: Normal echogenicity, smooth contour Mass: No focal masses Gallbladder: No distention, pericholecystic fluid, wall thickening, stone, or reported sonographic Dia's sign. Gallbladder wall measures 0.3 cm. Bile Ducts: Intrahepatic Ducts: No dilatation Extrahepatic Ducts: Common bile duct measures 0.3 cm. Pancreas: Partially visualized pancreas is unremarkable. Kidney: The right kidney measures 8.4 cm without evidence of hydronephrosis or stone. Vessels: Aorta: Visualized portions are normal Inferior Vena Cava: Visualized portions are normal Main Portal Vein: 0.8 cm, normal size with hepatopetal flow. Free Fluid: No evidence of ascites. IMPRESSION: Unremarkable right upper quadrant abdominal ultrasound. No sonographic evidence of cholecystitis or cholelithiasis. Signed by: Dr. Rafia Lisa MD on 08/09/2018 12:53 PM
[2018-08-09] MEDS: METOCLOPRAMIDE HCL 10 MG/2ML VIAL IV SCH ×3 (12:58→20:55)
[2018-08-09] MEDS: IRBESARTAN 150 MG TAB PO SCH (12:58)
[2018-08-09 14:06] LABS: B-TYPE NATRIURETIC PEPTIDE2 233.4 pg/mL (0-100)
--- NOTE | 2018-08-09 14:11 | Diagnostic Imaging Report ---
Examination: CT head without contrast Clinical Indication: Headaches. Dizziness. Technique: Transaxial noncontrast images from the skull base through the vertex were obtained. Sagittal and coronal reformatted images were done. Dose modulation, iterative reconstruction, and/or weight based adjustment of the mA/kV was utilized to reduce the radiation dose to as low as reasonably achievable. Comparison: None. Findings: Scalp: No abnormalities. Bones: Intact. No fractures. No blastic or lytic lesions. Brain sulci: Moderate volume loss for patient's age. Ventricles: No hydrocephalus. Extra-axial space: No abnormalities. Parenchyma: There are confluent areas of low-attenuation within subcortical and periventricular white matter, nonspecific, but could represent microvascular ischemic disease. No masses, hemorrhage, or acute or chronic cortical based vascular insults. Suprasellar region: No abnormalities. Craniocervical junction: The foramen magnum is patent. No Chiari one malformation. Incidental findings: Prior left canal wall up mastoidectomy. Impression: 1. No acute intracranial finding. 2. Mild chronic microvascular ischemic change. 3. Moderate volume loss for patient's age. Signed by: Dr. Emi Ruiz M.D. on 08/09/2018 2:08 PM
[2018-08-09] MEDS: FAMOTIDINE 20 MG/2 ML VIAL IV SCH (16:40)
[2018-08-09 20:32] LABS: CREATINE KINASE MB 6.1 ng/mL (0-5.0)
[2018-08-09] MEDS ORDERED: ZOLPIDEM TARTRATE 5 MG TAB PO PRN (21:00)
[2018-08-10] MEDS: ACETAMIN/BUTALBITAL/CAFFEINE TAB PO PRN (03:07)
[2018-08-10 03:38] LABS: BASOPHILS % 0.5 % (0.0-1.0); EOSINOPHILS # (AUTO) 0.1 (0.0-0.4); EOSINOPHILS % 2.4 % (0.0-6.0); HEMATOCRIT 33.1 % (34.2-44.1); HEMOGLOBIN 10.9 g/dL (12.0-16.0); LYMPHOCYTES # (AUTO) 1.2 (1.0-3.2); LYMPHOCYTES % 28.4 % (18.0-39.1); MEAN CORPUSCULAR HEMOGLOBIN 31.1 pg (28-32); MEAN CORPUSCULAR HGB CONC 32.9 g/dL (31-35); MEAN CORPUSCULAR VOLUME 94.3 fL (81-99); MONOCYTES # (AUTO) 0.8 (0.2-0.8); MONOCYTES % 19.1 % (4.4-11.3); NEUTROPHILS % 49.1 % (38.7-80.0); PLATELET COUNT 223 x10e3/uL (140-360); RED BLOOD COUNT 3.51 x10e6/uL (3.6-5.1); RED CELL DISTRIBUTION WIDTH 12.8 % (11.7-14.4)
[2018-08-10 03:54] LABS: ANION GAP 11.8 mmol/L (8-16); CALCIUM 8.8 mg/dL (8.4-10.2); CREATININE, SERUM 1.26 mg/dL (0.57-1.11); POTASSIUM 3.8 mmol/L (3.5-5.1)
[2018-08-10 05:21] VITALS: BP 146/65
[2018-08-10] MEDS ORDERED: LEVOTHYROXINE SODIUM 25 MCG TABLET PO SCH ×2 (06:00→09:00)
[2018-08-10 08:00] VITALS: BP 146/65
[2018-08-10 08:06] VITALS: BP 146/65
[2018-08-10] MEDS ORDERED: ESTROGENS CONJUGATED 0.625 MG TAB PO SCH (09:00)
[2018-08-10] MEDS ORDERED: ESCITALOPRAM OXALATE 10 MG TAB PO SCH (09:00)
[2018-08-10] MEDS ORDERED: CELECOXIB 100 MG CAP PO SCH (09:00)
[2018-08-10] MEDS: ASPIRIN 325 MG TAB EC PO SCH (09:23)
[2018-08-10] MEDS: FAMOTIDINE 20 MG/2 ML VIAL IV SCH (09:23)
[2018-08-10] MEDS: METOCLOPRAMIDE HCL 10 MG/2ML VIAL IV SCH (09:23)
[2018-08-10] MEDS: IRBESARTAN 150 MG TAB PO SCH (09:24)
[2018-08-10] MEDS: PREGABALIN 50 MG CAP PO SCH (09:24)
[2018-08-10] MEDS ORDERED: FAMOTIDINE20 MG PO (09:40)
[2018-08-10] MEDS ORDERED: AMBIEN10 MG PO (09:40)
[2018-08-10] MEDS ORDERED: ASPIRIN ENTERI325 MG PO (09:40)
[2018-08-10] MEDS ORDERED: METOCLOPRAMIDE10 MG PO (09:40)
--- NOTE | 2018-08-10 16:02 | Consultation ---
DATE OF CONSULTATION: 08/09/2018 REASON FOR CONSULTATION: Chest pain. HISTORY OF PRESENT ILLNESS: This is an 83-year-old female, who presented with chest pain. According to the patient, she was having chest pain at the center of her chest that radiated to her left shoulder on a scale of 5/10. She stated that the pain was severe, worsened with shortness of breath, thus she came to the emergency room for evaluation. She denied any palpitation, any diaphoresis, any headache, nausea, or vomiting. Troponin x2 was negative. EKG showed normal sinus rhythm with no ST abnormalities. PAST MEDICAL HISTORY: Hypertension, hypothyroidism, migraine headache and questionable paroxysmal atrial fibrillation. PAST SURGICAL HISTORY: Appendectomy, hysterectomy, and knee surgery. FAMILY HISTORY: Noncontributory. SOCIAL HISTORY: No smoking. No drinking. Lives at home with family. MEDICATIONS: See med list. ALLERGIES: SHE IS NOT ALLERGIC TO ANY MEDICATION. REVIEW OF THE SYSTEM: Negative except those mentioned above. PHYSICAL EXAMINATION: VITAL SIGNS: Temperature 97.1, heart rate 70, blood pressure 146/65, respiration 18, oxygen saturation 96% on room air. GENERAL: She is awake, alert and oriented x3. HEENT: Mucous membranes moist. NECK: Supple. LUNGS: Bilateral clear to auscultation. CARDIOVASCULAR: S1, S2 present. ABDOMEN: Soft. NEUROLOGIC: Intact. EXTREMITIES: With no edema. LABS: Sodium 135, potassium 3.8, chloride 105, CO2 of 22, BUN 17, creatinine 1.26, glucose 91. White blood cell 4.09, hemoglobin 10.9, hematocrit 33.1, platelet 223. IMPRESSION: 1. Chest pain. 2. Hypertension. 3. Migraines. 4. Hypothyroidism. 5. Questionable paroxysmal atrial fibrillation. PLAN: 1. We will get serial cardiac enzymes. 2. We will get an echocardiogram to assess LV and valve function. 3. She had a recent stress test six months ago and she was told it was normal. We will continue her home medication, aspirin and nitrates. Further cardiac workup pending clinical course. Thank you for this consultation. Dictated by Scott Dang, ALONZO MD SARA cMkinney/EDWARD /[id number]
--- NOTE | 2018-08-10 19:59 | Discharge Summary ---
ADMISSION DIAGNOSES: Chest pain, hypertension, hypothyroidism, arthritis, insomnia, migraines, depression, anxiety, abdominal pain with nausea, and dizziness. DISCHARGE DIAGNOSES: Chest pain, hypertension, hypothyroidism, arthritis, insomnia, migraines, depression, anxiety, abdominal pain with nausea, and dizziness. Rule out acute coronary syndrome. 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 SURGICAL HISTORY: Right knee surgery, hysterectomy, appendectomy, brain tumor removal. FAMILY HISTORY: Noncontributory. SOCIAL HISTORY: Noncontributory. HOSPITAL COURSE: An 83-year-old female complains of substernal chest pressure that radiated to her left neck and left shoulder that began yesterday while walking. She complains of associated shortness of breath, dizziness, and diaphoresis. Pain worse with movement. She was recently treated for bronchitis and sinus infection. [place] chemical plant that [place] and has been exposed to benzene over the last few days. Her family went to check on her and they smelled gas in her home. She complains of anxiety and depression secondary to 6 family members dying within 6 months. She says she had a negative stress test about 6 months ago with her own saw offbearer. On admission, troponins were negative x3. Bilateral carotid Doppler was negative for stenosis. Echo showed EF of 60% to 65%. Chest x-ray was negative. Cardiology was consulted. Ultrasound of the abdomen showed no evidence of cholecystitis or cholelithiasis. CT of the brain showed no acute findings. Cardiology has cleared the patient for discharge. She will discharge home with prescription for Ambien, Reglan, Pepcid, and aspirin. The patient and son understand discharge instructions and agrees to plan. Vital signs stable, patient afebrile. Dictated by Sophie Sherwood, ALONZO MD CRISTIAN Priest/[facility] /[id number]
== END 2018-08-10 10:38 | disposition home or self-care (01) ==
LOC: FSED 17:51 → ERHOLD 19:47 → MED/SURG2 22:30
PROVIDERS: ADMIT Internal Medicine; ATTEND Internal Medicine
DX: R07.2 Precordial pain (principal); I10 Essential (primary) hypertension; G43.909 Migraine, unspecified, not intractable, without status migrainosus; E03.9 Hypothyroidism, unspecified; Z91.81 History of falling; E78.5 Hyperlipidemia, unspecified; M19.90 Unspecified osteoarthritis, unspecified site; R42 Dizziness and giddiness; F32.9 Major depressive disorder, single episode, unspecified; G47.00 Insomnia, unspecified
CPT/HCPCS: 36415 ×2; 70450; 71045; 76705; 80048 ×2; 80053; 80061; 82550; 82553; 83036; 83735 ×2; 83880 ×2; 84439; 84443; 84484 ×2; 85025 ×3; 93005; 93306; 93880; 96374; 97116; 97139; 97161; 99284; G0378 ×3; J0360; J2060; J2270; J2405; J2765 ×2

== ENCOUNTER → 2019-04-03 | Outpatient (CLI) | payer MEDICARE ==
[~2019-04-03] MED LIST changes: +AMBIEN10 MG PO; +ASPIRIN ENTERI325 MG PO; +CELEBREX100 MG PO; +FAMOTIDINE20 MG PO; +IRBESARTAN150 MG PO; +LEXAPRO10 MG PO; +METOCLOPRAMIDE10 MG PO
--- NOTE | 2019-04-03 15:13 | Diagnostic Imaging Report ---
TECHNIQUE: Magnetic resonance imaging of the RIGHT SHOULDER was performed WITHOUT injected contrast. COMPARISON: None available. HISTORY: Shoulder pain FINDINGS: MUSCLES AND TENDONS: Rotator Cuff: Tendons: Focal high-grade bursal surface tear of the supraspinatus coronal image 11. Muscles: No focal muscle atrophy. Biceps Tendon: The long head of the biceps tendon is intact and within the intertubercular groove. GLENOHUMERAL JOINT: Glenoid Labrum: Superior and posterior labral tearing. Articular Cartilage: Partial-thickness cartilage loss AC JOINT AND ACROMION: Mild hypertrophic degenerative changes of the acromioclavicular joint. Subacromial spur BONE: No acute fracture. SOFT TISSUES: Subacromial subdeltoid bursal fluid. IMPRESSION: Supraspinatus focal high-grade bursal surface tear at the humeral insertion. No full-thickness tear, retraction, or atrophy. Mild glenohumeral degenerative arthrosis with superior and posterior labral tearing. Subacromial spurring with subacromial subdeltoid bursal fluid. Signed by: Dr. Ge Mirza M.D. on 04/03/2019 3:10 PM
== END ==
LOC: MRI 09:44
PROVIDERS: ATTEND Specialist
DX: S46.811A Strain of other muscles, fascia and tendons at shoulder and upper arm level, right arm, initial encounter (principal)

== ENCOUNTER → 2019-07-02 | Day surgery (SDC) | payer MEDICARE ==
[2019-06-25 15:22] LABS: BASOPHILS % 0.7 % (0.0-1.0); EOSINOPHILS # (AUTO) 0.1 (0.0-0.4); EOSINOPHILS % 1.8 % (0.0-6.0); HEMATOCRIT 38.5 % (34.2-44.1); HEMOGLOBIN 12.2 g/dL (12.0-16.0); LYMPHOCYTES # (AUTO) 1.2 (1.0-3.2); LYMPHOCYTES % 27.4 % (18.0-39.1); MEAN CORPUSCULAR HEMOGLOBIN 29.9 pg (28-32); MEAN CORPUSCULAR HGB CONC 31.7 g/dL (31-35); MEAN CORPUSCULAR VOLUME 94.4 fL (81-99); MONOCYTES # (AUTO) 0.7 (0.2-0.8); MONOCYTES % 16.2 % (4.4-11.3); NEUTROPHILS # (AUTO) 2.4 (2.1-6.9); NEUTROPHILS % 53.7 % (38.7-80.0); PLATELET COUNT 229 x10e3/uL (140-360); RED BLOOD COUNT 4.08 x10e6/uL (3.6-5.1); RED CELL DISTRIBUTION WIDTH 13.2 % (11.7-14.4)
--- NOTE | 2019-06-25 16:17 | Diagnostic Imaging Report ---
Chest, 2 views, 06/25/2019. History: Preop, right shoulder surgery. Comparison: 08/08/2018. Findings: The cardiomediastinal silhouette and pulmonary vasculature are within normal limits. The lungs are clear without evidence of consolidation or pleural effusion. Degenerative changes are noted within the thoracic spine. There are no acute osseous or soft tissue abnormalities. Impression: No acute cardiopulmonary abnormality. Signed by: Jose Copeland on 06/25/2019 4:14 PM
[~2019-07-02] MED LIST changes: +ACETAMINOPHEN 1000 MG/100 ML IV ONE; +AMLODIPINE BESYL5 MG PO; +ATORVASTATIN CA10 MG PO; +CEFAZOLIN SOD 1 GM/NS 50ML 100 ML IV ONE; +CLONIDINE HCL0.1 MG PO; +DEXAMETHASONE SOD PHOS INJ 4 MG/ML VIAL ONE; +EPHEDRINE SULFATE INJ 50 MG/ML VIAL ONE; +EPINEPHRINE 1 MG/ML 30ML VIAL ONE; +FENTANYL CITRATE/PF 100MCG/2 ML INJ ONE; +GLYCOPYRROLATE INJ 0.2 MG/ML VIAL ONE; +KETOROLAC TROMETHAMINE 30 MG/ML VIAL ONE; +LIDOCAINE HCL 2% LOCAL INJ 5 ML SDV VIAL INJ ONE; +MIDAZOLAM HCL 2 MG/2 ML VIAL ONE; +NEOSTIGMINE 1 MG/ML 10ML VIAL ONE; +NYSTATIN CREAM TOP; +ONDANSETRON HCL INJ 2MG/ML 2ML 2 MG/ML VIAL ONE; +PANTOPRAZOLE SO40 MG PO; +PROPOFOL IV EMULSION 10 MG/ML 20 ML VIAL ONE; +REGLAN10 MG PO; +ROCURONIUM BROMIDE 10 MG/ML 5ML VIAL ONE; +ROPIVACAINE 0.5% 5 MG/ML 30 ML SDV ONE; +SEVOFLURANE INHAL SOLN 250 ML PEN BTL ONE; +TYLENOL WITH C1 EACH PO; +VITAMIN D32000 UNI1; +XYZAL5 MG
[2019-07-02 12:25] VITALS: BP 131/70
--- NOTE | 2019-07-11 23:04 | Operative Report ---
DATE OF PROCEDURE: 07/02/2019 SURGEON: Brian Renee MD PREOPERATIVE DIAGNOSES: Right shoulder rotator cuff tear, right shoulder acromioclavicular joint arthritis. POSTOPERATIVE DIAGNOSES: Right shoulder rotator cuff tear, right shoulder acromioclavicular joint arthritis, right shoulder chondromalacia glenoid, right shoulder synovitis, right shoulder labral tear. OPERATIONS AND PROCEDURES PERFORMED: The patient underwent right shoulder examination under anesthesia, a right shoulder arthroscopy, a right shoulder arthroscopic debridement of synovitis, a right shoulder arthroscopic biceps tenolysis, a right shoulder chondroplasty of the glenoid, a right shoulder arthroscopic rotator cuff reconstruction, a right shoulder arthroscopic subacromial decompression and acromioplasty, and a right shoulder arthroscopic distal clavicle resection. ELECTRICIAN TELEPHONE: ASTER Santana ANESTHESIA: General endotracheal intubation anesthesia. IV FLUIDS: Per anesthesia record. BLOOD LOSS: minimal. COMPLICATIONS: None. BRIEF DESCRIPTION OF THE PATIENT'S OPERATIVE PROCEDURE: Ms. Phillips was taken to the operating room, placed in supine position on the operating table. Following induction of general anesthesia as well as endotracheal intubation, the patient's right upper extremity was examined under anesthesia. She was found to have full passive range of motion of the shoulder joint. There was no evidence of instability. There were no gross abnormalities to shoulder. The patient's upper extremity was prepped and draped in standard surgical fashion. Standard posterior, lateral, and anterior portals were created without difficulty. The scope was placed within the shoulder joint atraumatically. Examination of the glenohumeral articulation demonstrated chondromalacia of the glenoid. There was mild synovitis in the shoulder. There was a full-thickness rotator cuff tear. A shaver was placed in the shoulder joint. The synovitis was debrided. A chondroplasty of the glenoid was performed at this time. The articular surface of the rotator cuff was debrided at this time. The probe was placed in the shoulder joint and the biceps tendon was evaluated. The long head of the biceps was found to be contained within the shoulder, but the patient had an extensive labral injury. The labral injury extended into the biceps tendon. A biter was placed in the shoulder and the biceps was released at its anchor insertion into the glenoid. The greater tuberosity of the humerus was then debrided to a bleeding bony bed. The shoulder was deflated with sterile normal saline. The scope was placed in subacromial space and a lateral portal was created with an outside in technique. There was significant bursal inflammation. A bursectomy was performed. The patient's rotator cuff injury was easily identified. The shaver was used to further debride the insertion site. A suture anchor was placed in the greater tuberosity of the humerus and the suture arms from the anchor were woven through the rotator cuff tissue. The rotator cuff tissue was then advanced and tied firmly over the greater tuberosity. This resulted in complete reapproximation of the patient's injury. The coracoacromial ligament was then resected. An aggressive acromioplasty was performed at this time. Attention was then turned to the acromioclavicular joint. The anterior portal was transferred into the subacromial space at the level of the AC joint. The acromioclavicular joint was isolated. The shaver was transferred to the anterior portal and a 1 cm section of the distal clavicle was then resected in its entirety. This was confirmed arthroscopically. The shoulder was inflated with sterile normal saline. The portal sites were closed. Sterile dressings were applied. The patient was provided a shoulder immobilizer, awakened, and taken to the postanesthesia care unit in stable condition. MD OSVALDO Summers/[facility]WARD /[id number]
== END | disposition home or self-care (01) ==
LOC: OR 07:37
PROVIDERS: ATTEND Specialist
DX: M75.111 Incomplete rotator cuff tear or rupture of right shoulder, not specified as traumatic (principal); M19.011 Primary osteoarthritis, right shoulder; S43.431A Superior glenoid labrum lesion of right shoulder, initial encounter; M65.811 Other synovitis and tenosynovitis, right shoulder; M94.211 Chondromalacia, right shoulder; J45.909 Unspecified asthma, uncomplicated; E03.9 Hypothyroidism, unspecified; I10 Essential (primary) hypertension; M79.7 Fibromyalgia; F32.9 Major depressive disorder, single episode, unspecified; X58.XXXA Exposure to other specified factors, initial encounter; Z01.810 Encounter for preprocedural cardiovascular examination; Z01.812 Encounter for preprocedural laboratory examination; Z01.818 Encounter for other preprocedural examination
CPT/HCPCS: 29824; 29826; 29827; 36415; 71046; 85025; 93005; C1713; J0131; J0690; J1100; J1885; J2001; J2250; J2405; J2704; J2710; J2795; J3010

== ENCOUNTER 2019-07-17 18:30 | Observation (INO) | payer MEDICARE ==
[~2019-07-17] VITALS: Ht 162.6 cm; Wt 83.5 kg
[~2019-07-17 18:30] MED LIST changes: -ACETAMINOPHEN 1000 MG/100 ML IV ONE; -CEFAZOLIN SOD 1 GM/NS 50ML 100 ML IV ONE; -DEXAMETHASONE SOD PHOS INJ 4 MG/ML VIAL ONE; -EPHEDRINE SULFATE INJ 50 MG/ML VIAL ONE; -EPINEPHRINE 1 MG/ML 30ML VIAL ONE; -FENTANYL CITRATE/PF 100MCG/2 ML INJ ONE; -GLYCOPYRROLATE INJ 0.2 MG/ML VIAL ONE; -KETOROLAC TROMETHAMINE 30 MG/ML VIAL ONE; -LIDOCAINE HCL 2% LOCAL INJ 5 ML SDV VIAL INJ ONE; -MIDAZOLAM HCL 2 MG/2 ML VIAL ONE; -NEOSTIGMINE 1 MG/ML 10ML VIAL ONE; -NYSTATIN CREAM TOP; -ONDANSETRON HCL INJ 2MG/ML 2ML 2 MG/ML VIAL ONE; -PROPOFOL IV EMULSION 10 MG/ML 20 ML VIAL ONE; -REGLAN10 MG PO; -ROCURONIUM BROMIDE 10 MG/ML 5ML VIAL ONE; -ROPIVACAINE 0.5% 5 MG/ML 30 ML SDV ONE; -SEVOFLURANE INHAL SOLN 250 ML PEN BTL ONE; -TYLENOL WITH C1 EACH PO
[2019-07-17] MEDS ORDERED: SODIUM CHLORIDE 0.9% 1000ML 1,000 ML IV STA (19:04)
[2019-07-17] MEDS ORDERED: ONDANSETRON HCL INJ 2MG/ML 2ML 2 MG/ML VIAL IV STA ×2 (19:04→21:23)
[2019-07-17] MEDS ORDERED: PANTOPRAZOLE 40 MG 10ML VIAL IV STA (19:04)
[2019-07-17] MEDS ORDERED: MORPHINE SULFATE 2 MG/ML SYR 1ML IV STA (20:06)
[2019-07-17 20:08] LABS: BASOPHILS % 0.3 % (0.0-1.0); EOSINOPHILS % 0.1 % (0.0-6.0); HEMOGLOBIN 13.6 g/dL (12.0-16.0); LYMPHOCYTES # (AUTO) 0.9 (1.0-3.2); LYMPHOCYTES % 10.2 % (18.0-39.1); MEAN CORPUSCULAR HEMOGLOBIN 30.4 pg (28-32); MEAN CORPUSCULAR HGB CONC 33.2 g/dL (31-35); MEAN CORPUSCULAR VOLUME 91.7 fL (81-99); MONOCYTES # (AUTO) 0.6 (0.2-0.8); MONOCYTES % 6.7 % (4.4-11.3); NEUTROPHILS # (AUTO) 7.4 (2.1-6.9); NEUTROPHILS % 82.5 % (38.7-80.0); PLATELET COUNT 270 x10e3/uL (140-360); RED BLOOD COUNT 4.47 x10e6/uL (3.6-5.1); RED CELL DISTRIBUTION WIDTH 12.8 % (11.7-14.4)
[2019-07-17 20:24] LABS: ALANINE AMINOTRANSFERASE 14 IU/L (0-55); ALBUMIN 4.3 g/dL (3.5-5.0); ALBUMIN/GLOBULIN RATIO 1.2 (0.8-2.0); ALKALINE PHOSPHATASE 83 IU/L (40-150); ANION GAP 21.2 mmol/L (8-16); BLOOD UREA NITROGEN 24 mg/dL (7-26); BUN/CREATININE RATIO 20 (6-25); CALCIUM 10.5 mg/dL (8.4-10.2); CARBON DIOXIDE 18 mmol/L (22-29); CHLORIDE 102 mmol/L (98-107); CREATINE KINASE 55 IU/L (29-168); CREATININE, SERUM 1.21 mg/dL (0.57-1.11); EST GLOMERULAR FILTRATION RATE 42 ML/MIN (60-); GLUCOSE 101 mg/dL (74-118); LIPASE 25 U/L (8-78); POTASSIUM 5.2 mmol/L (3.5-5.1); SODIUM 136 mmol/L (136-145)
--- NOTE | 2019-07-17 20:57 | Diagnostic Imaging Report ---
Examination: Single AP view of the chest. COMPARISON: Chest 2 views 06/25/2019 INDICATION: Vomiting IMPRESSION: 1. Lines and Tubes: None 2. Lungs are well-inflated. Linear opacity in the left mid lung likely reflects subsegmental atelectasis. Lungs are otherwise clear. No consolidation or effusion. 3. Cardiomediastinal silhouette is normal. Pulmonary vasculature is normal. 4. No acute bony abnormalities. Signed by: Dr. Enrike Claire M.D. on 07/17/2019 8:55 PM
[2019-07-17] MEDS ORDERED: DEXTROSE 50% SYRINGE 50 ML IV STA (21:18)
[2019-07-17] MEDS ORDERED: INSULIN REGULAR, HUMAN 100 UNIT/1 ML 3ML VIAL IV ONE (21:30)
[2019-07-17] MEDS ORDERED: ONDANSETRON HCL INJ 2MG/ML 2ML 2 MG/ML VIAL ONE (21:31)
[2019-07-17] MEDS ORDERED: MORPHINE SULFATE 5 MG/ML VIAL IV ONE (22:00)
[2019-07-17] MEDS ORDERED: MORPHINE SULFATE INJ 4 MG/ML INJ 1ML IV ONE (22:00)
--- NOTE | 2019-07-18 00:20 | Diagnostic Imaging Report ---
EXAMINATION: CT of the abdomen and pelvis with contrast. TECHNIQUE: Spiral CT images of the abdomen and pelvis were performed from the lung bases to the lesser trochanters after the intravenous administration of 100 cc of Isovue 370. Coronal and sagittal reformatted images were obtained. COMPARISON: None. CLINICAL HISTORY:Vomiting, diarrhea DISCUSSION: ABDOMEN/PELVIS: LOWER THORAX:Bibasilar linear and reticular opacities compatible with subsegmental atelectasis. HEPATOBILIARY: No focal hepatic lesions. No intra-or extrahepatic biliary ductal dilation. The gallbladder is unremarkable. SPLEEN: No splenomegaly or focal splenic lesion. PANCREAS: No focal masses or ductal dilatation. ADRENALS: No adrenal nodules. 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 7 cm hypoattenuating lesion in the left renal moiety is too small to further characterize but likely represent a small cyst. No hydronephrosis, calculi, or gross mass lesion. PELVIC ORGANS/BLADDER: Urinary bladder is unremarkable. Uterus is not identified and may have been removed. No adnexal mass. PERITONEUM/RETROPERITONEUM: No ascites or pneumoperitoneum. LYMPH NODES: No pelvic sidewall, retroperitoneal, or mesenteric lymphadenopathy. VESSELS: Abdominal aorta, major branch vessels, and iliac arterial systems notable for atherosclerotic calcification without aneurysmal dilatation. Portal vein, splenic vein, and central superior mesenteric vein are patent. GI TRACT: The majority of the colon is collapsed and poorly evaluated. The appendix is not identified and may have been removed. No right lower quadrant inflammation. The stomach is collapsed with prominent rugal folds. No small bowel dilatation to suggest obstruction. BONES AND SOFT TISSUE: No osseous destructive lesions. Diffuse osteopenia with multilevel degenerative disc changes and facet arthropathy of the lumbar spine. Levoscoliotic curvature. No focal soft tissue abnormalities. IMPRESSION: No acute intra-abdominal or pelvic CT abnormalities. 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 Signed by: Dr. Leoncio Wells M.D. on 07/18/2019 12:17 AM
[2019-07-18] MEDS ORDERED: IOPAMIDOL 370 MG/ML 200 ML INFUS..BTL INJ ONE (01:00)
[2019-07-18] MEDS ORDERED: SODIUM CHLORIDE 0.9% 50ML 50 ML ONE (01:00)
[2019-07-18 02:19] LABS: CREATINE KINASE MB 2.4 ng/mL (0-5.0)
[2019-07-18 03:17] LABS: CALCIUM 9.9 mg/dL (8.4-10.2); CREATININE, SERUM 1.14 mg/dL (0.57-1.11)
[2019-07-18] MEDS ORDERED: ONDANSETRON HCL INJ 2MG/ML 2ML 2 MG/ML VIAL IV STA (05:24)
[2019-07-18] MEDS: ONDANSETRON HCL INJ 2MG/ML 2ML 2 MG/ML VIAL IV PRN ×3 (06:12→21:39)
--- NOTE | 2019-07-18 06:55 | NUR ---
report given to martell crooks rn
[2019-07-18] MEDS ORDERED: DEXTROSE 50% SYRINGE 50 ML IV PRN (07:30)
[2019-07-18] MEDS ORDERED: INSULIN LISPRO 100 UNIT/1 ML 3ML VIAL SQ SCH (07:30)
--- NOTE | 2019-07-18 07:34 | NUR ---
Spoke with patient and family, patient reports vomiting started after taking 2 tab norco instead of 1. Patient reports taking meds on empty stomach. Reports nausea, no active vomiting noted. Notified Sophie DIRECTOR OF ANALYTICS of nausea, pt is currently not diabetic per family and patient report. Patient provided jello and water and instructed to take small bites and wait to make sure she tolerates. Patient very appreciative.
--- NOTE | 2019-07-18 08:07 | NUR ---
Patient reports feeling better after eating jello, no vomiting.
--- NOTE | 2019-07-18 08:52 | NUR ---
Labs drawn and sent to lab
[2019-07-18] MEDS ORDERED: ACETAMINOPHEN 325 MG TAB PO PRN (09:30)
[2019-07-18] MEDS ORDERED: HYDRALAZINE HCL 20 MG/ML VIAL IV PRN (09:30)
[2019-07-18 10:10] LABS: BILIRUBIN,URINE NEGATIVE (NEGATIVE); CLARITY,URINE CLEAR (CLEAR); COLOR,URINE YELLOW (YELLOW); KETONES,URINE 2+ (NEGATIVE); LEUKOCYTE ESTERASE ,URINE NEGATIVE (NEGATIVE); NITRITE,URINE NEGATIVE (NEGATIVE); PROTEIN,URINE DIPSTICK TRACE (NEGATIVE); URINE UROBILINOGEN 0.2 mg/dL (0.2 - 1); WBC,URINE (MAN) 0-5 /HPF (0-5)
[2019-07-18 10:11] LABS: BACTERIA,URINE RARE /HPF; EPITHELIAL CELLS,URINE FEW /LPF; RBC,URINE 0-5 /HPF (0-5)
[2019-07-18 10:30] LABS: CREATINE KINASE MB 5.5 ng/mL (0-5.0)
--- NOTE | 2019-07-18 11:34 | NUR ---
Patient resting quietly, no active vomiting noted since this RN came on shift. Awaiting inpatient bed.
[2019-07-18] MEDS: MORPHINE SULFATE INJ 4 MG/ML INJ 1ML IV PRN (13:49)
--- NOTE | 2019-07-18 13:54 | NUR ---
Patient medicated for pain and nausea.
--- NOTE | 2019-07-18 15:13 | NUR ---
Nursing report called to Andrew on Med-surg 2. Patient will be transferred to room 203.
--- NOTE | 2019-07-18 15:30 | NUR ---
PT RECEIVED FROM ER. ARCHIE3. EDUCATED PT ABOUT FALL PRECAUTIONS. PT VERBALIZED UNDERSTANDING. CALL LIGHT WITH IN EASY REACH. INSTRUCTED PT TO USE CALL LIGHT FOR ALL THE NEEDS. FAMILY MEMBER AT BEDSIDE. BED IS LOW AND LOCKED. SIDE RAILS X2. BED ALARM IS ON. PT DENIES NEEDS AT THIS TIME.
[2019-07-18 16:00] VITALS: BP 150/68
[2019-07-18 16:42] VITALS: BP 150/68
[2019-07-18 18:46] LABS: CREATINE KINASE MB 5.5 ng/mL (0-5.0)
--- NOTE | 2019-07-18 19:00 | NUR ---
BEDSIDE SHIFT REPORT GIVEN TO THE PROBATION AND PATROL AGENT RN. PT DENIED FURTHER NEEDS.
[2019-07-18 20:00] VITALS: BP 199/77
[2019-07-18 21:00] VITALS: BP 156/77
[2019-07-18] MEDS: MELATONIN 5 MG TABLET PO SCH (21:00)
[2019-07-18] MEDS ORDERED: ZOLPIDEM TARTRATE 10 MG TAB PO PRN (21:00)
[2019-07-18] MEDS: ATORVASTATIN 10 MG TAB PO SCH (21:38)
[2019-07-18] MEDS: NYSTATIN 15 GM POWDER UD BTL TOP SCH (21:39)
[2019-07-19] VITALS (7 sets, daily range): BP systolic 131–166; BP diastolic 58–91
[2019-07-19] MEDS: ACETAMIN/BUTALBITAL/CAFFEINE TAB PO PRN (05:08)
[2019-07-19] MEDS: LEVOTHYROXINE SODIUM 25 MCG TABLET PO SCH (05:08)
[2019-07-19 05:49] LABS: BASOPHILS % 0.3 % (0.0-1.0); EOSINOPHILS % 0.1 % (0.0-6.0); HEMATOCRIT 39.8 % (34.2-44.1); HEMOGLOBIN 13.2 g/dL (12.0-16.0); LYMPHOCYTES % 14.7 % (18.0-39.1); MEAN CORPUSCULAR HEMOGLOBIN 30.5 pg (28-32); MEAN CORPUSCULAR HGB CONC 33.2 g/dL (31-35); MEAN CORPUSCULAR VOLUME 91.9 fL (81-99); MONOCYTES # (AUTO) 0.8 (0.2-0.8); MONOCYTES % 12.5 % (4.4-11.3); NEUTROPHILS # (AUTO) 4.8 (2.1-6.9); PLATELET COUNT 284 x10e3/uL (140-360); RED BLOOD COUNT 4.33 x10e6/uL (3.6-5.1); RED CELL DISTRIBUTION WIDTH 13.4 % (11.7-14.4)
[2019-07-19 06:07] LABS: CHOL/HDL RATIO 2.8 (3.0-3.6)
[2019-07-19 06:30] LABS: ANION GAP 16.6 mmol/L (8-16); CALCIUM 10.5 mg/dL (8.4-10.2); CREATININE, SERUM 1.16 mg/dL (0.57-1.11); MAGNESIUM 1.9 MG/DL (1.3-2.1); POTASSIUM 3.6 mmol/L (3.5-5.1)
[2019-07-19 06:51] LABS: THYROID STIMULATING HORMONE 4.589 uIU/mL (0.350-4.940)
--- NOTE | 2019-07-19 07:00 | NUR ---
BEDSIDE SHIFT REPORT RECEIVED FROM THE BABBITT SPINNER RN. EDUCATED PT ABOUT FALL PRECAUTIONS.PT VERBALIZED UNDERSTANDING CALL LIGHT WITH IN EASY REACH. INSTRUCTED PT TO USE CALL LIGHT FOR ALL THE NEEDS. BED IS LOW AND LOCKED. SIDE RAILS X2. BED ALARM IS ON. FAMILY MEMBER AT BEDSIDE. PT DENIES NEEDS AT THIS TIME.
[2019-07-19] MEDS: ONDANSETRON HCL INJ 2MG/ML 2ML 2 MG/ML VIAL IV PRN (07:03)
[2019-07-19 07:24] LABS: CREATINE KINASE MB 5.1 ng/mL (0-5.0)
[2019-07-19] MEDS: AMLODIPINE BESYLATE 5 MG TAB PO SCH (07:39)
[2019-07-19] MEDS: MORPHINE SULFATE INJ 4 MG/ML INJ 1ML IV PRN (07:47)
[2019-07-19] MEDS: ESTROGENS CONJUGATED 0.625 MG TAB PO SCH (07:52)
[2019-07-19] MEDS: ESCITALOPRAM OXALATE 10 MG TAB PO SCH (07:52)
[2019-07-19] MEDS: PREGABALIN 75 MG CAP PO SCH (07:52)
[2019-07-19] MEDS ORDERED: PANTOPRAZOLE 40 MG 10ML VIAL IV SCH (09:00)
[2019-07-19] MEDS ORDERED: TRAMADOL HCL 50 MG TAB PO PRN (09:45)
[2019-07-19] MEDS: NYSTATIN 15 GM POWDER UD BTL TOP SCH (09:49)
--- NOTE | 2019-07-19 10:07 | NUR ---
SPOKE WITH PT, DAUGHTER (POA) AND FAMILY AT BEDSIDE ABOUT HOME HEALTH ORDER, DISCUSSED DIFFERENT OPTIONS IN NETWORK. FAMILY CHOSE [facility] AND SECOND CHOICE IS [facility], FAXED TO [phone].
[2019-07-19] MEDS: METOCLOPRAMIDE HCL 10 MG/2ML VIAL IV SCH ×3 (11:36→21:28)
[2019-07-19] MEDS: PANTOPRAZOLE 40 MG 10ML VIAL IV SCH (17:14)
--- NOTE | 2019-07-19 19:00 | NUR ---
BEDSIDE SHIFT REPORT GIVEN TO THE ASSISTANT CLINICAL NURSE MANAGER RN. PT DENIED FURTHER NEEDS.
[2019-07-19] MEDS: MELATONIN 5 MG TABLET PO SCH (21:28)
[2019-07-19] MEDS: ATORVASTATIN 10 MG TAB PO SCH (21:28)
[2019-07-20 00:11] VITALS: BP 119/55
[2019-07-20 04:20] VITALS: BP 142/63
[2019-07-20] MEDS: LEVOTHYROXINE SODIUM 25 MCG TABLET PO SCH (05:24)
[2019-07-20] MEDS: ACETAMIN/BUTALBITAL/CAFFEINE TAB PO PRN (05:24)
[2019-07-20 06:22] LABS: BASOPHILS % 0.6 % (0.0-1.0); EOSINOPHILS # (AUTO) 0.1 (0.0-0.4); EOSINOPHILS % 1.9 % (0.0-6.0); HEMATOCRIT 38.5 % (34.2-44.1); HEMOGLOBIN 12.4 g/dL (12.0-16.0); LYMPHOCYTES # (AUTO) 1.4 (1.0-3.2); LYMPHOCYTES % 20.1 % (18.0-39.1); MEAN CORPUSCULAR HGB CONC 32.2 g/dL (31-35); MEAN CORPUSCULAR VOLUME 93.2 fL (81-99); MONOCYTES # (AUTO) 1.1 (0.2-0.8); NEUTROPHILS # (AUTO) 4.3 (2.1-6.9); NEUTROPHILS % 61.1 % (38.7-80.0); PLATELET COUNT 270 x10e3/uL (140-360); RED BLOOD COUNT 4.13 x10e6/uL (3.6-5.1); RED CELL DISTRIBUTION WIDTH 13.3 % (11.7-14.4)
[2019-07-20 06:43] LABS: ANION GAP 14.5 mmol/L (8-16); CREATININE, SERUM 1.13 mg/dL (0.57-1.11); MAGNESIUM 1.9 MG/DL (1.3-2.1); POTASSIUM 3.5 mmol/L (3.5-5.1)
--- NOTE | 2019-07-20 07:00 | NUR ---
BEDSIDE SHIFT REPORT RECEIVED FROM THE RECOVERER RN. EDUCATED PT ABOUT FALL PRECAUTIONS.PT VERBALIZED UNDERSTANDING CALL LIGHT WITH IN EASY REACH. INSTRUCTED PT TO USE CALL LIGHT FOR ALL THE NEEDS. BED IS LOW AND LOCKED. SIDE RAILS X2. BED ALARM IS ON. DAUGHTER AT BEDSIDE. PT DENIES NEEDS AT THIS TIME.
[2019-07-20 07:42] VITALS: BP 132/65
[2019-07-20 07:59] VITALS: BP 132/65
[2019-07-20] MEDS: PANTOPRAZOLE 40 MG 10ML VIAL IV SCH (08:15)
[2019-07-20] MEDS: METOCLOPRAMIDE HCL 10 MG/2ML VIAL IV SCH (08:15)
--- NOTE | 2019-07-20 08:15 | NUR ---
LEFT FORE ARM 22 G IV REMOVED DUE TO LEAKING. PT HAS NO IV ACCESS. ZAHIRA LEATHER SHAVER AWARE. PT IS PENDING D/C AFTER LUNCH. OKAY NO IV ACCESS PER ZAHIRA LEATHER SHAVER.
[2019-07-20] MEDS: AMLODIPINE BESYLATE 5 MG TAB PO SCH (08:37)
[2019-07-20] MEDS: ESTROGENS CONJUGATED 0.625 MG TAB PO SCH (08:37)
[2019-07-20] MEDS: PREGABALIN 75 MG CAP PO SCH (08:37)
[2019-07-20] MEDS: ESCITALOPRAM OXALATE 10 MG TAB PO SCH (08:40)
[2019-07-20] MEDS: NYSTATIN 15 GM POWDER UD BTL TOP SCH (08:40)
[2019-07-20] MEDS ORDERED: TYLENOL WITH C1 EACH PO (09:05)
[2019-07-20] MEDS ORDERED: REGLAN10 MG PO (09:05)
[2019-07-20] MEDS ORDERED: NYSTATIN CREAM TOP (09:05)
[2019-07-20] MEDS ORDERED: PANTOPRAZOLE SO40 MG PO (09:05)
[2019-07-20] MEDS: METOCLOPRAMIDE HCL 10 MG TAB PO SCH ×2 (09:26→12:15)
[2019-07-20] MEDS ORDERED: PANTOPRAZOLE SOD 40 MG TABEC PO SCH (09:30)
[2019-07-20] MEDS ORDERED: NYSTATIN 100,000 UNITS/GM CRM 30GM TUBE TOP SCH (10:00)
--- NOTE | 2019-07-20 11:09 | NUR ---
PT REFUSED TO WEAR TELEMETRY BOX. PT PENDING D/C AFTER LUNCH. ZAHIRA ROSADO AWARE. .
[2019-07-20 11:17] VITALS: BP 130/67
--- NOTE | 2019-07-20 13:55 | NUR ---
PT TOLERATED LUNCH WELL. NO C/O DISCOMFORT. DAUGHTER AT BEDSIDE. INFORMED THE SAME TO ZAHIRA ROSADO. OKAY TO D/C PT PER ZAHIRA.
--- NOTE | 2019-07-20 14:10 | NUR ---
PT DISCHARGED HOME SAFELY WITH DAUGHTER. TELEMETRY AND IV REMOVED, TIP INTACT. DRESSING APPLIED. RX GIVEN. DISCHARGE INSTRUCTIONS GIVEN AND PATIENT VERBALIZED UNDERSTANDING. PT ESCORTED VIA WHEEL CHAIR WITH THE TECH TO THE PRIVATE AUTO AT THE FRONT ENTRANCE. PT DENIED FURTHER NEEDS.
--- NOTE | 2019-07-21 01:57 | Discharge Summary ---
ADMISSION DIAGNOSES: Intractable nausea and vomiting, hypertension, hypothyroidism, migraine, depression, anxiety, arthritis, scoliosis, and fibromyalgia. DISCHARGE DIAGNOSES: Intractable nausea and vomiting, hypertension, hypothyroidism, migraine, depression, anxiety, arthritis, scoliosis, fibromyalgia, and possible gastritis. 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 PAST SURGICAL HISTORY: Right knee surgery, hysterectomy, appendectomy, brain tumor removal, right rotator cuff surgery, bladder suspension, and vaginal prolapse repair. FAMILY HISTORY: Noncontributory. SOCIAL HISTORY: Noncontributory. HOSPITAL COURSE: 84-year-old female admits with complaints of nausea and vomiting after taking two [place] on an empty stomach yesterday morning. She denies previous abdominal pain, nausea, vomiting, fever, or sick contacts. On admission, lipase was within normal limits. The patient was started on Protonix IV. Chest x-ray showed no consolidation or effusion. Lungs are clear. CT of the abdomen and pelvis showed no acute abnormality. Lipase, TSH, and CK were within normal limits. The patient was started on Zofran and clear liquid diet and diet was advanced as tolerated. The patient improved once Reglan was added. After discussing the possibility of gastritis with the patient and the daughter, they decided that they did not want a GI workup. Since the patient is tolerating diet with Zofran and Reglan, she will discharge home with those prescriptions. She was advised to stop her Celebrex and take her Protonix on an empty stomach, as she was not taking it as prescribed. The patient and daughter understand discharge instructions and agrees to plan. Vital signs stable, patient afebrile. Dictated by Sophie Sherwood NP MD CRISTIAN Priest/MODL /[id number]
== END 2019-07-20 14:11 | disposition home or self-care (01) ==
LOC: ER 18:30 → ERHOLD 07-18 05:29 → MED/SURG2 07-18 15:41
PROVIDERS: ADMIT Internal Medicine; ATTEND Internal Medicine
DX: R11.2 Nausea with vomiting, unspecified (principal); M79.7 Fibromyalgia; E03.9 Hypothyroidism, unspecified; G43.909 Migraine, unspecified, not intractable, without status migrainosus; M41.9 Scoliosis, unspecified; F32.9 Major depressive disorder, single episode, unspecified; K29.70 Gastritis, unspecified, without bleeding; F41.9 Anxiety disorder, unspecified; I10 Essential (primary) hypertension; E78.5 Hyperlipidemia, unspecified
CPT/HCPCS: 36415 ×4; 71045; 74177; 80048 ×3; 80053; 80061; 81001; 82550 ×3; 82553 ×3; 82948; 83036 ×2; 83690; 83735 ×2; 84443; 84484 ×3; 85025 ×3; 93005; 97110; 97116; 97139; 97161; 97530; 99285; C9113 ×3; G0378 ×3; J0360; J2270 ×4; J2405 ×3; J2765 ×2; J7030; J7799; J8597; Q9967; S0164

== ENCOUNTER 2021-02-01 13:23 | Emergency (ER) | payer MEDICARE ==
[~2021-02-01] VITALS: Ht 165.1 cm; Wt 120.2 kg
[~2021-02-01 13:23] MED LIST changes: +NYSTATIN CREAM TOP; +REGLAN10 MG PO; +TYLENOL WITH C1 EACH PO
[2021-02-01] MEDS ORDERED: ONDANSETRON HCL INJ 2MG/ML 2ML 2 MG/ML VIAL IV STA (13:38)
[2021-02-01 13:57] LABS: BASOPHILS # (AUTO) 0.1 (0.0-0.1); BASOPHILS % 0.8 % (0.0-1.0); HEMATOCRIT 42.3 % (34.2-44.1); HEMOGLOBIN 13.8 g/dL (12.0-16.0); LYMPHOCYTES # (AUTO) 1.3 (1.0-3.2); LYMPHOCYTES % 16.7 % (18.0-39.1); MEAN CORPUSCULAR HEMOGLOBIN 29.8 pg (28-32); MEAN CORPUSCULAR HGB CONC 32.6 g/dL (31-35); MEAN CORPUSCULAR VOLUME 91.4 fL (81-99); MONOCYTES % 12.9 % (4.4-11.3); NEUTROPHILS # (AUTO) 5.5 (2.1-6.9); NEUTROPHILS % 69.3 % (38.7-80.0); PLATELET COUNT 307 x10e3/uL (140-360); RED BLOOD COUNT 4.63 x10e6/uL (3.6-5.1); RED CELL DISTRIBUTION WIDTH 12.9 % (11.7-14.4)
[2021-02-01 14:08] LABS: ALBUMIN 4.4 g/dL (3.5-5.0); ALBUMIN/GLOBULIN RATIO 1.1 (0.8-2.0); ANION GAP 22.4 mmol/L (8-16); CALCIUM 10.9 mg/dL (8.4-10.2); CREATININE, SERUM 1.45 mg/dL (0.57-1.11); POTASSIUM 3.4 mmol/L (3.5-5.1)
[2021-02-01] MEDS ORDERED: SODIUM CHLORIDE 0.9% 500ML 500 ML IV ONE (15:00)
[2021-02-01 15:14] LABS: CLARITY,URINE SL CLOUDY (CLEAR); COLOR,URINE STRAW (YELLOW); KETONES,URINE 2+ (NEGATIVE); LEUKOCYTE ESTERASE ,URINE NEGATIVE (NEGATIVE); NITRITE,URINE NEGATIVE (NEGATIVE); PROTEIN,URINE DIPSTICK 2+ (NEGATIVE); URINE UROBILINOGEN 0.2 mg/dL (0.2 - 1)
[2021-02-01 15:25] LABS: AMORPHOUS SEDIMENT,URINE MANY (FEW); EPITHELIAL CELLS,URINE FEW /LPF; RBC,URINE 0-5 /HPF (0-5)
[2021-02-01] MEDS ORDERED: ONDANSETRON ODT4 MG PO (15:34)
[2021-02-01 16:00] VITALS: BP 149/70
== END 2021-02-01 16:02 | disposition home or self-care (01) ==
LOC: ER 13:30
DX: K52.9 Noninfective gastroenteritis and colitis, unspecified (principal); I10 Essential (primary) hypertension; R51.9 Headache, unspecified; Z20.822 Contact with and (suspected) exposure to COVID-19
CPT/HCPCS: 36415; 70450; 71045; 80053; 81001; 83690; 84484; 85025; 93005; 99284; J2405; J7040; U0002